=== PATIENT | female | born 1930 | race Caucasian/White ===

== ENCOUNTER 2017-03-22 16:05 | Inpatient (IN) | payer OTHER ==
[~2017-03-22] VITALS: Ht 167.6 cm; Wt 73.5 kg
--- NOTE | 2017-03-22 15:50 | NUR ---
Pt on unit Pt back on unit via wheelchair. No s/s of distress noted.
[~2017-03-22 16:05] MED LIST: ALBU2.5V2 IH; ALBU6.7H IH; ASPI-484 PO; ATOR40TA PO; CARV3.12 PO; CARV6.25 PO; CEPH-350 PO; CITA20TA5 PO; DILT180C PO; LEVO25TA4 PO; LISI10TA2 PO; MONT10TA6 PO
--- NOTE | 2017-03-22 16:35 | NUR ---
Pt on unit Pt arrived on unit via wheelchair. Oriented pt to room. Pt denies pain. Provided pt with fluids and snacks. Call light within reach. Family at bedside.
[2017-03-22 16:59] LABS: BASOPHIL % 0.3 % (0.0-0.2); EOSINOPHIL # 0.1 10^3/uL (0.0-0.2); EOSINOPHIL % 0.8 % (0.0-5.0); HEMATOCRIT 43.3 % (36.0-46.0); LYMPHOCYTES # 1.9 10^3/uL (1.0-4.8); LYMPHOCYTES % 18.6 % (24.0-44.0); MEAN CELL HGB 29.2 pg (26-34); MEAN CELL HGB CONCENTRATION 32.3 g/dL (33-37); MEAN CORP VOLUME 90.2 fL (78-100); MEAN PLATELET VOLUME 10.8 fL (7.8-11.0); MONOCYTES # 0.8 10^3/uL (0.3-0.8); MONOCYTES % 8.4 % (5.0-12.0); NEUTROPHIL # 7.2 10^3/uL (1.8-7.7); NEUTROPHILS % 71.7 % (41.0-85.0)
--- NOTE | 2017-03-22 17:15 | NUR ---
Pt off unit Pt transferred off unit via wheelchair to CAT scan. No s/s of distress noted.
[2017-03-22 17:26] LABS: ALANINE AMINOTRANSFERASE 10 U/L (12-78); ALKALINE PHOSPHATASE 142 U/L (50-136); ASPARTATE AMINO TRANSFERASE 12 U/L (0-35); CALCIUM 9.1 mg/dL (8.4-10.5); CARBON DIOXIDE 34.4 mmol/L (20.0-32); GLUCOSE 104 mg/dL (70-110)
[2017-03-22 18:01] VITALS: BP 124/66
--- NOTE | 2017-03-22 18:35 | NUR ---
REport received report from offgoing shift
[2017-03-22] MEDS ORDERED: ALPR0.254 PO (19:11)
--- NOTE | 2017-03-22 19:20 | DIREP ---
PROCEDURE:CT HEAD OR BRAIN W/O CONTRAST COMPARISON:[facility] CT, CR, SPINE CERVICAL 2 VIEW, 08/29/2013, 03:43 PM. [facility], CT, CT HEAD BRAIN W/O CONTRAST, 12/10/2016, 10:02 AM. INDICATIONS:head injury post fall TECHNIQUE:CT images were created without intravenous contrast. FINDINGS: VENTRICLES:The ventricles are normal in size and configuration. CEREBRUM:Atrophy and white matter disease. Findings within normal limits for age, unchanged from previous examination CEREBELLUM:Negative. BRAINSTEM:Negative. BASAL CISTERNS:Negative. HEMORRHAGE:No MASS LESION:Small densely calcified lesion arising from the right calvarium, in keeping meningioma. ACUTE INFARCT:No SKULL:Normal. SINUSES:Normal. OTHER:None CONCLUSION:Atrophy and white matter disease, unchanged from previous examination Dictated by: Cristobal Posey MD on 03/22/2017 at 07:15 PM
[2017-03-22] MEDS: NS 1000ML 1,000 ML IV SCH (20:07)
[2017-03-22] MEDS ORDERED: COREG ONE (20:34)
[2017-03-22] MEDS ORDERED: COREG PO SCH (21:00)
[2017-03-22 21:04] VITALS: BP 142/92
[2017-03-22] MEDS: VENTOLIN IH PRN (21:59)
--- NOTE | 2017-03-22 23:30 | NUR ---
confused pt tried to unhook herself from her iv by slowly removing her iv tape. Nurse reinfoced it and explain to her the importance of her iv fluid. Pt now is placed on nasal cannula at 2L due to low oxygen saturation. After several minutes with oxygen, pt O2sat went from 84 to 95%.
[2017-03-23] VITALS: BP 148/80
--- NOTE | 2017-03-23 02:40 | NUR ---
unccoperative pt removed all pads of telemetry and oxygen supply via nasal cannula. Nurse tried to explain to her the importance of telemetry and oxygen for her but she verbalized she does not want it and the nurse can have it. Informed charge nurse about it.
--- NOTE | 2017-03-23 02:56 | NUR ---
iv removed pt removed her iv when nurse rechecked her this time. Pt. asleep and no s/sx of any distress.
--- NOTE | 2017-03-23 03:25 | NUR ---
pt awake pt on side of the bed. Nurse decided to stay with her at this time to prevent accidental fall. Pt. is confused and uncooperative. She refused reinsertion of iv. Pt refused to lay back to her bed.
[2017-03-23 04:00] VITALS: BP 136/54
[2017-03-23] MEDS: SYNTHROID PO SCH (05:49)
--- NOTE | 2017-03-23 06:00 | NUR ---
iv reinserted finally pt agreed to have the iv reinserted. Placed back her telemetry and oxygen.
--- NOTE | 2017-03-23 06:45 | NUR ---
Report Received report and assumed care of pt
--- NOTE | 2017-03-23 06:59 | NUR ---
report report given to o/c shift
[2017-03-23] MEDS: NS 1000ML 1,000 ML IV SCH ×2 (07:24→20:09)
[2017-03-23 08:09] VITALS: BP 144/97
[2017-03-23] MEDS: ZESTRIL PO SCH (08:11)
[2017-03-23] MEDS: LIPITOR PO SCH (08:11)
[2017-03-23] MEDS: SINGULAIR PO SCH (08:11)
[2017-03-23] MEDS: CELEXA PO SCH (08:11)
[2017-03-23] MEDS: PROTONIX PO SCH (08:11)
[2017-03-23] MEDS: COREG PO SCH ×2 (08:12→20:09)
--- NOTE | 2017-03-23 08:18 | NUR ---
DISCHARGE PLANNING: PT LIVES HOME WITH HER DAUGHTER AND SON IN [place]. PT HAS ALL DME IN PLACE WHICH CONSIST OF A HOSPITAL BED, WALKER, CANE. PT HAD HOME O2 IN PLACE BUT DAUGHTER STATED THEY HAVE A TANK ON STAND BY BUT SHE DOES NOT USE IT DAILY. PT IS ON [facility]. [facility] NOTIFIED OF ADMISSION AND STATED SINCE IT IS UNRELATED TO HER DIAGNOSIS THEY WILL RESUME SERVICES UPON DISCHARGE. NO FURTHER NEEDS NOTED OR IDENTIFIED AT THIS TIME. PT SAFETY HANDOUT ADDRESSED, NO QUESTIONS ASKED, UNDERSTANDING VERBALIZED. SS TO CONTINUE TO FOLLOW AND MONITOR DISCHARGE PLANNING NEEDS.
[2017-03-23] MEDS: VENTOLIN IH PRN (08:44)
[2017-03-23] MEDS ORDERED: CARDIZEM CD PO SCH (09:00)
[2017-03-23 12:29] VITALS: BP 124/73
--- NOTE | 2017-03-23 14:01 | PRM.PN ---
Subjective Subjective Subjective this 86-year-old lady with A. fib and dementia was admitted status post head injury with fall and altered mental status. She still in A. fib, rate is controlled CT scan of the brain showed atrophy without acute bleed conservative plan of management, correct electrolytes. IV fluids. Discharge planning Patient History: Alzheimer's disease 32 MOTHER 33 FATHER VTE VTE Risk Total Score: >5 VTE Risk Score VTE Risk: Score 0-1 = Low Risk (Aggressive mobilization; early ambulation; no VTE prophylaxis required) Score 2: Moderate Risk (Intermittent/Pneumatic Compression Device OR Lovenox/Heparin/Coumadin) Score 3-4: High Risk (Intermittent/Pneumatic Compression Device AND Lovenox/Heparin/Coumadin) Score > or =5: Highest Risk (Intermittent/Pneumatic Compression Device AND Lovenox/Heparin/Coumadin) Review of Systems Allergies: Coded Allergies: No Known Allergies (Unverified , 12/04/16) Scheduled Albuterol Sulfate (Proventil Hfa), 1 PUFF IH BID, (Reported) Alprazolam (Alprazolam), 1 TAB PO PRN, (Reported) Aspirin (Aspir 81), 1 TAB PO DAILY, (Reported) Atorvastatin 40MG (Lipitor 40MG), 1 TAB PO DAILY, (Reported) Carvedilol 6.25MG (Coreg 6.25MG), 3.125 MG PO BID, (Reported) Cephalexin (Keflex), 1 CAP PO BID, (Reported) Citalopram Hydrobromide (Citalopram Hbr), 1 TAB PO DAILY, (Reported) Diltiazem Hcl (Diltiazem 24HR Er), 1 CAP PO DAILY, (Reported) Levothyroxine Sodium (Levothyroxine Sodium), 1 TAB PO DAILY, (Reported) Lisinopril (Lisinopril), 1 TAB PO DAILY, (Reported) Montelukast Sodium (Singulair), 1 TAB PO DAILY, (Reported) Scheduled PRN Albuterol Sulfate (Albuterol Sulfate), 2.5 MG IH RTQ4 PRN for WHEEZING Objective Vitals and I/O Vital Sign - Last 24 Hours 03/22/17 03/22/17 03/22/17 03/22/17 18:01 18:09 20:50 21:04 Temp 97.9 98.3 Pulse 102 113 113 Resp 18 21 B/P (MAP) 124/66 (85) 142/92 142/92 (109) Pulse Ox 95 90 O2 Delivery Room Air Room Air Room Air 03/22/17 03/22/17 03/23/17 03/23/17 22:01 23:38 00:00 04:00 Temp 99.7 98.4 Pulse 98 108 114 Resp 16 20 18 B/P (MAP) 148/80 (102) 136/54 (81) Pulse Ox 91 95 91 O2 Delivery Room Air Nasal Canula Nasal Canula 03/23/17 03/23/17 03/23/17 03/23/17 07:24 08:09 08:11 08:12 Temp 97.9 Pulse 102 102 Resp 18 B/P (MAP) 144/97 (113) 144/97 144/97 Pulse Ox 96 O2 Delivery Room Air Nasal [place] 03/23/17 03/23/17 03/23/17 03/23/17 08:12 08:46 08:51 12:29 Temp 98.3 Pulse 102 89 88 84 Resp 16 18 18 B/P (MAP) 144/97 124/73 (90) Pulse Ox 91 91 91 O2 Delivery Nasal [place]ula Intake and Output 03/22/17 03/22/17 03/23/17 15:00 23:00 07:00 Intake Total 420 ml Output Total 300 ml 300 ml Balance 120 ml -300 ml General: Alert ( she is more alert and oriented today.), Oriented X3 HEENT: Atraumatic, PERRLA Neck: Supple, No JVD Lungs: Clear to auscultation Heart: Normal S1, Normal S2, Other ( Irregular rhythm with A. fib) Abdomen: Normal bowel sounds Extremities: No clubbing Medication Reconciliation Scheduled Albuterol Sulfate (Proventil Hfa), 1 PUFF IH BID, (Reported) Alprazolam (Alprazolam), 1 TAB PO PRN, (Reported) Aspirin (Aspir 81), 1 TAB PO DAILY, (Reported) Atorvastatin 40MG (Lipitor 40MG), 1 TAB PO DAILY, (Reported) Carvedilol 6.25MG (Coreg 6.25MG), 3.125 MG PO BID, (Reported) Cephalexin (Keflex), 1 CAP PO BID, (Reported) Citalopram Hydrobromide (Citalopram Hbr), 1 TAB PO DAILY, (Reported) Diltiazem Hcl (Diltiazem 24HR Er), 1 CAP PO DAILY, (Reported) Levothyroxine Sodium (Levothyroxine Sodium), 1 TAB PO DAILY, (Reported) Lisinopril (Lisinopril), 1 TAB PO DAILY, (Reported) Montelukast Sodium (Singulair), 1 TAB PO DAILY, (Reported) Scheduled PRN Albuterol Sulfate (Albuterol Sulfate), 2.5 MG IH RTQ4 PRN for WHEEZING Assessment/Plan Assessment/Plan Assessment/Plan - A. fib -fall with head injury, brain concussion - no intracranial hemorrhage or stroke - hypertension, controlled -dementia, baseline -hypokalemia, potassium is given Problems: Patient History: Alzheimer's disease 32 MOTHER 33 FATHER NERI ESCOBAR MD Mar 23, 2017 14:01
[2017-03-23 17:46] VITALS: BP 118/73
--- NOTE | 2017-03-23 18:30 | NUR ---
report recieved report from Millicent CHRISTOPHER took over care
--- NOTE | 2017-03-23 19:20 | NUR ---
assessment kody in bed, patient states that she does not want to eat any of her supper, patient was offered sliced strawberries whick she ate, patient states no pain at this time. kody also states that she would like to get up and wheel arouns, kody was assisted in to chair and pushed down the nicole twice. patient back in room no other needs stated at this time,
[2017-03-23] MEDS ORDERED: KLOR-CON 10 PO ONE (19:46)
[2017-03-23 20:03] VITALS: BP 129/77
[2017-03-23] MEDS: KLOR-CON 10 PO SCH (20:09)
[2017-03-23] MEDS ORDERED: AMBIEN ONE (21:57)
[2017-03-23] MEDS ORDERED: ATIVAN PO STA (22:15)
--- NOTE | 2017-03-23 22:17 | NUR ---
Called [facility] nurse ordered 0.5 of ativan to help patient relax and fall aslepp
[2017-03-24 00:09] VITALS: BP 154/95
[2017-03-24 04:23] VITALS: BP 159/78
[2017-03-24] MEDS: SYNTHROID PO SCH (05:17)
[2017-03-24 05:48] LABS: BASOPHIL % 0.2 % (0.0-0.2); EOSINOPHIL # 0.1 10^3/uL (0.0-0.2); EOSINOPHIL % 1.3 % (0.0-5.0); HEMATOCRIT 40.8 % (36.0-46.0); HEMOGLOBIN 13.2 g/dL (12.0-15.0); LYMPHOCYTES # 1.3 10^3/uL (1.0-4.8); LYMPHOCYTES % 15.9 % (24.0-44.0); MEAN CELL HGB 28.8 pg (26-34); MEAN CELL HGB CONCENTRATION 32.4 g/dL (33-37); MEAN CORP VOLUME 89.1 fL (78-100); MEAN PLATELET VOLUME 11.6 fL (7.8-11.0); MONOCYTES % 11.9 % (5.0-12.0); NEUTROPHIL # 5.9 10^3/uL (1.8-7.7); NEUTROPHILS % 70.3 % (41.0-85.0); RED CELL DISTRIBUTION WIDTH 14.8 % (11.5-14.5); WHITE BLOOD CELL 8.4 10^3/uL (4.5-11.0)
[2017-03-24 06:05] LABS: CALCIUM 9.1 mg/dL (8.4-10.5); CARBON DIOXIDE 32.9 mmol/L (20.0-32)
--- NOTE | 2017-03-24 06:35 | NUR ---
Report Received report and assumed care of pt
[2017-03-24] MEDS ORDERED: CARDIZEM CD PO SCH (09:00)
[2017-03-24] MEDS: KLOR-CON 10 PO SCH (09:18)
[2017-03-24] MEDS: ZESTRIL PO SCH (09:18)
[2017-03-24] MEDS: LIPITOR PO SCH (09:18)
[2017-03-24] MEDS: PROTONIX PO SCH (09:19)
[2017-03-24] MEDS: COREG PO SCH (09:19)
[2017-03-24] MEDS: SINGULAIR PO SCH (09:19)
[2017-03-24] MEDS: CELEXA PO SCH (09:19)
[2017-03-24 09:28] VITALS: BP 119/73
--- NOTE | 2017-03-24 09:30 | NUR ---
Discharge Discharge instructions given to pt. Educated pt daughter importance of follow up appt with Dr. Santana. Daughter able to verbalize understanding. Pt waiting in room with daughter for ride. Pt denies pain or needs at this time. call light within reach.
--- NOTE | 2017-03-24 10:03 | NUR ---
[facility] CM NOTIFIED [facility] AND SPOKE TO MITA CHRISTOPHER REGARDING PATIENTS DISCHARGE FOR TODAY. MITA STATED THAT [facility] WILL FOLLOW UP WITH PATIENT TOMORROW 03/25/17. NO FURTHER CM OR DISCHARGE NEEDS KNOWN @ THIS TIME.
--- NOTE | 2017-03-24 10:20 | NUR ---
Pt off unit Pt transferred off unit via wheelchair to personal vehicle. No s/s of distress noted.
--- NOTE | 2017-03-25 12:40 | PRM.DC ---
Discharge Summary Date of Arrival on Unit: Mar 22, 2017 Reason for Visit: fall and altered mental status Additional Comments 86-year-old lady with A. fib, dementia, hypertension. Has been on treatment for rate control for A. fib, not on oral anticoagulation due to risk of bleed. Sustained a fall the night prior to admission with head injury specially to the back of the head. Since then patient family reported decrease in cognition with weakness and disorientation. The patient was admitted for evaluation, CT of the brain was unremarkable for any acute infarct or bleed. She received IV fluids, coxj-nt-plvyy abnormalities were corrected. Noted to be in A. fib, the rate was controlled. She was diagnosed with brain concussion without bleed, improved with observation and hydration. She was back to normal mental status as according to the family. Discharge planning was discussed in details. Patient lives with her daughter Patient History: Alzheimer's disease 32 MOTHER 33 FATHER History Present Illness: General: Alert, Oriented X3 HEENT: Atraumatic, PERRLA Neck: Supple, No JVD Lungs: Clear to auscultation Heart: Regular rate Abdomen: Normal bowel sounds Extremities: No clubbing Skin: No rashes Scheduled Albuterol Sulfate (Proventil Hfa), 1 PUFF IH BID, (Reported) Alprazolam (Alprazolam), 1 TAB PO PRN, (Reported) Aspirin (Aspir 81), 1 TAB PO DAILY, (Reported) Atorvastatin 40MG (Lipitor 40MG), 1 TAB PO DAILY, (Reported) Carvedilol 6.25MG (Coreg 6.25MG), 3.125 MG PO BID, (Reported) Cephalexin (Keflex), 1 CAP PO BID, (Reported) Citalopram Hydrobromide (Citalopram Hbr), 1 TAB PO DAILY, (Reported) Diltiazem Hcl (Diltiazem 24HR Er), 1 CAP PO DAILY, (Reported) Levothyroxine Sodium (Levothyroxine Sodium), 1 TAB PO DAILY, (Reported) Lisinopril (Lisinopril), 1 TAB PO DAILY, (Reported) Montelukast Sodium (Singulair), 1 TAB PO DAILY, (Reported) Scheduled PRN Albuterol Sulfate (Albuterol Sulfate), 2.5 MG IH RTQ4 PRN for WHEEZING Course Blood Pressure Systolic: 119 Blood Pressure Diastolic: 73 Blood Pressure Mean: 88 Plan Assessment - chronic A. fib - fall and head injury - brain concussion syndrome - dementia, baseline - hypokalemia - hypertension Discharge Disposition: Stable Plan - continue home medications - avoid oral anticoagulation other than aspirin to minimize chance of bleed - home care instructions related to ambulation and prevention of falls - continue A. fib therapy - outpatient follow-up NERI ESCOBAR MD Mar 25, 2017 12:40
== END 2017-03-24 10:24 | disposition hospice, home (50) | DRG 90 ==
LOC: MS 16:05
PROVIDERS: ADMIT Internal Medicine; ATTEND Internal Medicine
DX: S06.0X9A Concussion with loss of consciousness of unspecified duration, initial encounter (principal); W19.XXXA Unspecified fall, initial encounter; I10 Essential (primary) hypertension; F03.90 Unspecified dementia, unspecified severity, without behavioral disturbance, psychotic disturbance, mood disturbance, and anxiety; E87.6 Hypokalemia; I48.2 Chronic atrial fibrillation; Y93.89 Activity, other specified; Y92.89 Other specified places as the place of occurrence of the external cause; Y99.8 Other external cause status
CPT/HCPCS: 36415; 70450; 80048; 80053; 82550; 84484; 85025; 93005; 94640; J3480; J3490; J7030; J7613

== ENCOUNTER 2017-04-30 11:39 | Inpatient (IN) | payer MEDICARE, OTHER ==
[~2017-04-30] VITALS: Ht 162.6 cm; Wt 69.9 kg
[~2017-04-30 11:39] MED LIST changes: +ALPR0.254 PO
--- NOTE | 2017-04-30 12:00 | NUR ---
LACERATION REPAIR SCALP LACERATION CLEANSED WITH BETADINE AND IRRAGATED WITH NS. DR MARAVILLA AT BEDSIDE REPAIRING LACERATION WITH YARA. 5 YARA PLACED. BLEEDING CONTROLLED. 4X4 DRESSING APPLIED AND SECURED WITH COBAN. PT TOLERATED WELL.
--- NOTE | 2017-04-30 12:10 | ER.PDOC ---
General Chief Complaint: Head Injury Stated Complaint: LACERATIONS Time seen by MD: 11:55 Source: patient, family, EMS Exam Limitations: clinical condition History of Present Illness Initial Comments Pt fell at 3:30 AM and injured head on mid occipital region, but, she was not brought to ER at that time, then the hospice nurse went to the house and noticed a laceration and asked that the patient be transferred here, She apparently did not lose consciousness, but, seem confused and more lethargic than usual Occurred: this evening Where: home Severity: moderate Location: occipital Method of Injury: fell Associated symptoms: Dazed Allergies: Coded Allergies: No Known Allergies (Unverified , 12/04/16) Home Meds Active Scripts Albuterol Sulfate (ALBUTEROL SULFATE) 2.5 Mg/3 Ml Vial.neb, 2.5 MG IH RTQ4 Y for WHEEZING, #30 AMPULE Prov:MELISA ABARCA MD 12/08/16 Reported Medications Alprazolam (ALPRAZOLAM) 0.25 Mg Tablet, 1 TAB PO PRN, #90 TAB 03/22/17 Cephalexin (KEFLEX) 500 Mg Capsule, 1 CAP PO BID, #10 CAP 12/07/16 Montelukast Sodium (SINGULAIR) 10 Mg Tablet, 1 TAB PO DAILY, #90 TAB 4 Refills 12/07/16 Albuterol Sulfate (PROVENTIL HFA) 6.7 Gm Hfa.aer.ad, 1 PUFF IH BID, #1 INHALER 4 Refills 12/07/16 Carvedilol 6.25MG (COREG 6.25MG) 6.25 Mg Tablet, 3.125 MG PO BID, #60 TAB 4 Refills 12/07/16 Aspirin (ASPIR 81) 81 Mg Tablet.dr, 1 TAB PO DAILY, #30 TAB 5 Refills 12/04/16 Atorvastatin 40MG (LIPITOR 40MG) 40 Mg Tablet, 1 TAB PO DAILY, #30 TAB 5 Refills 12/04/16 Diltiazem Hcl (DILTIAZEM 24HR ER) 180 Mg Cap.er.24h, 1 CAP PO DAILY, #30 CAP 5 Refills 12/04/16 Citalopram Hydrobromide (CITALOPRAM HBR) 20 Mg Tablet, 1 TAB PO DAILY, #30 TAB 5 Refills 12/04/16 Levothyroxine Sodium (LEVOTHYROXINE SODIUM) 25 Mcg Tablet, 1 TAB PO DAILY, #30 TAB 5 Refills 12/04/16 Lisinopril (LISINOPRIL) 10 Mg Tablet, 1 TAB PO DAILY, #30 TAB 5 Refills 12/04/16 Past Medical History Medical History: COPD Surgical History: appendectomy, cholecystectomy, hysterectomy, knee, stent Social History Smoking: cigarettes, less than 1 pack/day Alcohol Use: none Drug Use: none Review of Systems Constitutional: see HPI Eyes: see HPI Ears, Nose, Mouth, Throat: see HPI Respiratory: see HPI Cardiovascular: see HPI Gastrointestinal: see HPI Genitourinary: see HPI Musculoskeletal: see HPI Skin: see HPI Psychiatric/Neurological: see HPI Endocrine: see HPI Hematologic/Lymphatic: see HPI Physical Exam General Appearance: Alert, No Apparent Distress, WD/WN Head: Active Bleeding, Lacerations (laceration 4 cm on occipital area), Other Eye: PERRL, EOMI, No nystagmus ENT: Nml external inspection, Pharynx nml Neck: non-tender, painless ROM, trachea midline Cardiovascular/Respiratory: Regular Rate, Rhythm, No M/R/G, Normal Peripheral Pulses, No JVD, Normal Breath Sounds, No Respiratory Distress, Rhonchi, Wheezing Gastrointestinal: Normal Bowel Sounds, No Organomegaly, No Pulsatile Mass, Non Tender, Soft Back: Normal Inspection, No CVA Tenderness, No Vertebral Tenderness Extremities: Normal Range of Motion, Non-Tender, Normal Inspection, No Pedal Edema, No Calf Tenderness, Normal Capillary Refill NEURO/PSYCH: Alert, Cooperative, Interactive, Mood/affect nml, Confused Cranial Nerves: Other (unable to test, non focal) Motor/Sensory: No Motor Deficit, No Sensory Deficit, No Pronator Drift, Negative Babinski's Sign Gurdeep Coma Score Best Eye Response: (4) Open Spontaneously Best Verbal Response: (5) Oriented Best Motor Response: (6) Obeys Commands Laceration/Wound Repair Laceration/Wound Repair : Wound Location: Occipital area Wound Length (cm): 4 Wound cleaned: betadine Distal NVT: neuro intact, vasc intact Wound's Depth, Shape: superficial, linear, subcutaneous Wound Explored: clean Tendon Intact: Yes Wound Debrided: minimal Wound Repaired With: arthur Number of Sutures: 5 Results/Orders Results/Orders Laboratory Tests Test 04/30/17 12:10 04/30/17 12:23 04/30/17 12:30 White Blood Count 6.4 10^3/uL (4.5-11.0) Red Blood Count 4.74 10^6/uL (4.00-5.20) Hemoglobin 13.7 g/dL (12.0-15.0) Hematocrit 42.3 % (36.0-46.0) Mean Corpuscular Volume 89.2 fL (78-100) Mean Corpuscular Hemoglobin 28.9 pg (26-34) Mean Corpuscular Hemoglobin Concent 32.4 g/dL (33-37) Red Cell Distribution Width 14.6 % (11.5-14.5) Platelet Count 185 10^3/uL (150-400) Mean Platelet Volume 10.6 fL (7.8-11.0) Neutrophils (%) (Auto) 59.9 % (41.0-85.0) Lymphocytes (%) (Auto) 28.6 % (24.0-44.0) Monocytes (%) (Auto) 9.4 % (5.0-12.0) Neutrophils # (Auto) 3.8 10^3/uL (1.8-7.7) Lymphocytes # (Auto) 1.8 10^3/uL (1.0-4.8) Monocytes # (Auto) 0.6 10^3/uL (0.3-0.8) Absolute Immature Granulocyte (auto 0.02 10^3 u/L (0-2) Eosinophils % 1.6 % (0.0-5.0) Basophils % 0.2 % (0.0-0.2) Basophils # 0.0 10^3/uL (0.0-0.1) Eosinophil Count 0.1 10^3/uL (0.0-0.2) Percent Immature Gran (Cell Imm) 0.30 % (0.00-0.50) Sodium Level 142 mmol/L (132-145) Potassium Level 3.4 mmol/L (3.6-5.2) Chloride Level 104.0 mmol/L (96-109) Carbon Dioxide Level 34.7 mmol/L (20.0-32) Anion Gap 6.7 Blood Urea Nitrogen 8 mg/dL (7-18) Creatinine 0.68 mg/dL (0.59-1.40) Estimated GFR () 98.8 BUN/Creatinine Ratio 11.0 Glucose Level 93 mg/dL (70-110) Calcium Level 9.3 mg/dL (8.4-10.5) Total Bilirubin 0.7 mg/dL (0.2-1.0) Aspartate Amino Transf (AST/SGOT) 14 U/L (0-35) Alanine Aminotransferase (ALT/SGPT) 15 U/L (12-78) Alkaline Phosphatase 129 U/L (50-136) Total Protein 6.8 g/dL (6.4-8.2) Albumin 3.3 g/dL (3.4-5.0) Globulin 3.5 Urine Collection Type Unknown Urine Color Yellow (YELLOW) Urine Appearance Slightly cloudy (CLEAR) Urine Bilirubin Negative MG/DL (NEGATIVE) Urine Ketones Negative (NEGATIVE) Urine Specific [place] 1.010 (1.005-1.035) Urine pH 8 (5.0-6.0) Urine Protein Negative (NEGATIVE) Urine Urobilinogen Normal (NEGATIVE) Urine Nitrate Negative (NEGATIVE) Urine Leukocyte Esterase 25 /ul trace (NEGATIVE) Urine Blood Negative (NEGATIVE) Urine RBC 0-2 RBC/HPF (NONE SEEN) Urine WBC 0-2 WBC/HPF (0-2) Urine Squamous Epithelial Cells Few #/HPF (FEW) Urine Bacteria Few (NONE SEEN) Urine Glucose Normal (NEGATIVE) Departure Time of Disposition: 13:48 Disposition: 02 XFER SHT-TRM HOSP Impression: Primary Impression: Subdural hemorrhage Condition: Critical Referrals: JAVIER RUSSELL MD (PCP) PRIMARY CARE PROVIDER SERAFIN SANCHEZ MD Apr 30, 2017 12:10
--- NOTE | 2017-04-30 12:17 | NUR ---
LAB TRUCK DRIVING AT BEDSIDE DRAWING BLOOD
--- NOTE | 2017-04-30 12:20 | NUR ---
RAD TABLE SAW OPERATOR AT BEDSIDE FOR PORTABLE CXR
[2017-04-30 12:23] LABS: BASOPHIL % 0.2 % (0.0-0.2); EOSINOPHIL # 0.1 10^3/uL (0.0-0.2); EOSINOPHIL % 1.6 % (0.0-5.0); HEMATOCRIT 42.3 % (36.0-46.0); HEMOGLOBIN 13.7 g/dL (12.0-15.0); LYMPHOCYTES # 1.8 10^3/uL (1.0-4.8); LYMPHOCYTES % 28.6 % (24.0-44.0); MEAN CELL HGB 28.9 pg (26-34); MEAN CELL HGB CONCENTRATION 32.4 g/dL (33-37); MEAN CORP VOLUME 89.2 fL (78-100); MEAN PLATELET VOLUME 10.6 fL (7.8-11.0); MONOCYTES # 0.6 10^3/uL (0.3-0.8); MONOCYTES % 9.4 % (5.0-12.0); NEUTROPHIL # 3.8 10^3/uL (1.8-7.7); NEUTROPHILS % 59.9 % (41.0-85.0); RED CELL DISTRIBUTION WIDTH 14.6 % (11.5-14.5); WHITE BLOOD CELL 6.4 10^3/uL (4.5-11.0)
--- NOTE | 2017-04-30 12:25 | NUR ---
UA PT ASSISTED TO RESTROOM VIA WC TO OBTAIN UA.
--- NOTE | 2017-04-30 12:30 | NUR ---
RAD PT TO RAD FOR CT HEAD
[2017-04-30 12:38] LABS: BILIRUBIN,URINE NEGATIVE (NEGATIVE); UROBILINOGEN,URINE NORMAL (NEGATIVE)
[2017-04-30 12:38] LABS: CALCIUM 9.3 mg/dL (8.4-10.5); CARBON DIOXIDE 34.7 mmol/L (20.0-32)
--- NOTE | 2017-04-30 12:40 | NUR ---
RAD PT BACK FROM RAD
[2017-04-30 12:50] LABS: APPEARANCE,URINE SLIGHTLY CLOUDY (CLEAR); UA COLOR YELLOW (YELLOW)
[2017-04-30 13:01] LABS: WBC,URINE 0-2 WBC/HPF (0-2)
--- NOTE | 2017-04-30 13:25 | DIREP ---
PROCEDURE:CT HEAD OR BRAIN W/O CONTRAST COMPARISON:[facility], CT, CT HEAD BRAIN W/O CONTRAST, 03/22/2017, 05:22 PM. INDICATIONS:Head injury, Fall TECHNIQUE:CT images were created without intravenous contrast. FINDINGS: VENTRICLES:The ventricles are normal in size and configuration. CEREBRUM:Atrophy and white matter disease. Findings within normal limits for age, unchanged from previous examination CEREBELLUM:Negative. BRAINSTEM:Negative. BASAL CISTERNS:Negative. HEMORRHAGE:No MASS LESION:Small densely calcified lesion arising from the right calvarium, in keeping meningioma. ACUTE INFARCT:No SKULL:Small 5 mm x 8 mm densely calcified meningioma associated with the right posterior frontal calvarium best seen on axial image 17 on series 2.-unchanged from March 22, 2017. SINUSES:Normal. OTHER:Soft tissue swelling and clips over the parietal scalp. CONCLUSION:1. Acute subdural hematoma in the interhemispheric fissure along the right side of the falx and also adjacent to the right side of the tentorium and have appeared since the previous study dated March 22, 2017. No definite mass effect is identified. 2. Soft tissue swelling and clips over the parietal scalp posteriorly. 3. Atrophy, chronic deep white matter abnormalities and small right frontal meningioma are unchanged from March 22, 2017. Dictated by: Nura Ferris M.D. on 04/30/2017 at 01:16 PM
--- NOTE | 2017-04-30 13:36 | NUR ---
[facility] DR SANCHEZ ON PHONE WITH [facility] TRANSFER LINE
--- NOTE | 2017-04-30 13:38 | NUR ---
DR IVAN SANCHEZ ON PHONE WITH DR LOVE AT [facility]. PER DR LOVE, HE WILL BE CALLING DR RIDDLE TO SEE IF PT CAN BE A DIRECT ADMIT. IF DR RIDDLE WILL NOT MAKE HER A DIRECT ADMIT THEN DR LOVE WILL ACCEPT PT IN [facility] ER.
--- NOTE | 2017-04-30 13:45 | NUR ---
DR VENKATESH RIDDLE ACCEPTED PT A DIRECT ADMIT
--- NOTE | 2017-04-30 13:49 | NUR ---
DR TEVIN ABARCA HAS BEEN NOTIFIED OF TRANSFER
--- NOTE | 2017-04-30 13:55 | NUR ---
[facility] NURSE INFORMED STAFF THAT DAUGHTER WHO HAS POA DECIDED NOT TO TRANSFER TO [facility].
--- NOTE | 2017-04-30 14:14 | DIREP ---
PROCEDURE:CHEST 1 VIEW COMPARISON:[facility], CR, XRAY CHEST SINGLE VW, 04/30/2017, 11:31 AM. INDICATIONS:Ronchii, wheezing, FALL 04-29-2017 FINDINGS: LUNGS/PLEURA:Chronic appearing changes in both lungs. No effusions. VASCULATURE:Normal. Unremarkable pulmonary vasculature. CARDIAC:Mild cardiomegaly. MEDIASTINUM:Normal. No visible mass or adenopathy. BONES:Normal. No fracture or visible bony lesion. OTHER:Negative. CONCLUSION:Cardiomegaly and chronic appearing changes in both lungs with no acute infiltrates. Dictated by: Nura Ferris M.D. on 04/30/2017 at 02:12 PM
--- NOTE | 2017-04-30 14:17 | NUR ---
POA WAITING ON THE POA TO MAKE FINAL DECISION ON PT CARE
--- NOTE | 2017-04-30 14:55 | NUR ---
KEENAN SANCHEZ AT BEDSIDE SPEAKING WITH KEENAN ABOUT POC. POA WISHING TO HAVE PT A DNR AND PLACED IN ALF. FAMILY DISCUSSING POC.
--- NOTE | 2017-04-30 15:04 | NUR ---
DR VENKATESH SANCHEZ ON PHONE WITH DR RIDDLE ABOUT PT UPDATE IN REGARDS TO MAKING PT A DNR
--- NOTE | 2017-04-30 15:05 | NUR ---
[facility] FAMILY DECICED TO TRANSFER TO [facility] AND WISH TO HAVE PT A DNR. DR SANCHEZ ON PHONE WITH DR RIDDLE TO NOTIFY HIM OF DNR STATUS
--- NOTE | 2017-04-30 15:20 | NUR ---
[facility] BE[facility] NOTIFIED OF TRANSFER TO [facility]
--- NOTE | 2017-04-30 15:28 | NUR ---
ALICIA FOSTER HERE TO TRANSFER PT TO [facility]
--- NOTE | 2017-04-30 15:45 | NUR ---
[facility] CALLED ELOISE, [facility] TRANSFER, AND NOTIFIED THAT PT WILL BE ADMITTED HERE AND NOT TAKEN TO [facility]. PER ELOISE SHE WILL CALL DR RIDDLE AND NOTIFY OF STATUS
--- NOTE | 2017-04-30 15:57 | NUR ---
ADMIT PT TRANSFERRED TO [facility] ROOM 335 VIA BED IN STABLE CONDITION. BEDSIDE REPORT GIVEN TO DEVIN SEGAL TO ASSUME CARE
--- NOTE | 2017-04-30 16:16 | NUR ---
ARRIVAL PT ARRIVED VIA STRETCHER FROM ER AT THIS TIME. REPORT RECEIVED FROM [facility] AND ASSUMED CARE OF PT.
[2017-04-30] MEDS ORDERED: MORPHINE SULFATE PO PRN (17:00)
[2017-04-30] MEDS ORDERED: HALDOL PO PRN (17:00)
[2017-04-30] MEDS ORDERED: ATIVAN PO PRN (17:00)
[2017-04-30] MEDS ORDERED: NORCO 10-325 TABLET PO PRN (17:00)
[2017-04-30 17:34] VITALS: BP 163/112
[2017-04-30] MEDS: APRESOLINE IV PRN (18:00)
[2017-04-30] MEDS: NICOTINE 14MG PATCH TD SCH (18:00)
--- NOTE | 2017-04-30 18:45 | NUR ---
received report from 0630 shift
--- NOTE | 2017-04-30 20:00 | NUR ---
Pt pulled out iv, does not remember how to use call light
--- NOTE | 2017-04-30 20:35 | NUR ---
Pt moved to room 329, to be closer to nurses station. pt moved via bed, tolerated well, call light in reach, bed alarm activated
[2017-04-30] MEDS: DUONEB 0.5 MG-3 MG/3 ML SOLN IH SCH (20:38)
[2017-04-30] MEDS ORDERED: DUONEB 0.5 MG-3 MG/3 ML SOLN IH ONE (21:00)
[2017-04-30] MEDS: RESTORIL PO SCH (21:11)
[2017-04-30] MEDS: ATIVAN PO SCH (21:11)
[2017-04-30 21:18] VITALS: BP 141/75
[2017-05-01 00:19] VITALS: BP 154/88
[2017-05-01] MEDS ORDERED: VENTOLIN IH PRN (00:30)
--- NOTE | 2017-05-01 01:27 | NUR ---
Up to Br with assist x1, Pt is incontinent of urine, irma care per nursing, assist pt back to bed,
[2017-05-01] MEDS: DUONEB 0.5 MG-3 MG/3 ML SOLN IH SCH ×4 (02:55→21:23)
--- NOTE | 2017-05-01 03:30 | PRM.ACF1 ---
Admission Criteria Forms NEUROLOGY GRG Clinical Indications for Admission to Inpatient Care (Place ' X' for any and all applicable criteria): Hospital admission is needed for appropriate care of the patient because of 1 or more of the following: [ ]I. Encephalitis [ ]II. Severe DETECTIVE AND INTELLIGENCE ANALYST infections indicated by 1 or more of the following(1)(2)(3) : [ ]a) Intracranial abscess [ ]b) Spinal abscess or myelitis [ ]c) Tuberculous or other nonbacterial, nonviral DETECTIVE AND INTELLIGENCE ANALYST infection(8) [ ]III. Vasculitis and 1 or more of the following(14)(15): []a) Altered mental status that is severe or persistent or other acute neurologic change []b) Psychosis []c) Seizure [ ]IV. Status epilepticus or repetitive seizures not controlled with emergent treatment [A] (7)(8) [ ]V. Altered mental status that is severe or persistent [ ]. Transient alteration in consciousness with high-risk etiology; examples include (12)(13): [ ]a) Cardiovascular source [ ]b) Cataplexy [ ]VII. Cerebral aneurysm requiring ANY ONE of the following(14): [ ]a) IV antihypertensives or vasoactive agents [ ]b) Sedation and analgesia for suspected leak [ ]c) Need for external ventricular drainage and cerebral perfusion pressure monitoring [ ]d) Emergent evaluation to determine need for surgical clipping or endovascular coiling by interventional radiology. If surgery is required ( Also use Craniotomy, Supratentorial, for Surgery of Bleeding Intracranial Aneurysm (for bleeding aneurysm) or Craniotomy, Supratentorial (for nonbleeding aneurysm) as appropriate. [X ]VIII. New-onset severe neurologic symptom requiring inpatient care indicated by ANY ONE of the following: [ ]a) Aphasia(15) [ ]b) Weakness (grade 3 or less) [ ]c) Paralysis (eg, hemiplegia) [ ]d) Spasticity(16) [ ]e) Dystonia [ ]e) Ataxia(17) [ ]f) Amnesia(18) [ ]g) Involuntary movements(19) [ ]h) Vertigo [ ] Visual loss [ X]i) Other severe neurologic finding (eg, papilledema, mass effect on imaging, myoclonus not treatable at alternative level of care (eg, observation care) [ ]IX. Guillain-[place] syndrome(20) [ ]X. Myasthenia gravis crisis or inpatient monitoring need as indicated by 1 or more of the following(21): [ ]a) Intensive treatment (eg, course of plasmapheresis) with inadequate outpatient situation to monitor patients status [ ]b) Inadequate airway protection [ ]c) Respiratory insufficiency requiring intubation or inpatient. monitoring [ ]d) Progressive dysphagia with failure to thrive [ ]XI. Multiple sclerosis or other acute demyelinating disease requiring inpatient care as indicated by 1 or more of the following (22)(23): [ ]a) Acute severe deterioration requiring inpatient treatment (eg, IV steroids, plasmapheresis, close observation) [ ]b) Acute complication requiring inpatient care (eg, sepsis, severe decubitus, aspiration) [ ]XII.Parkinson disease requiring inpatient care (Also use Optimal Recovery Care Criteria or General Recovery Criteria as appropriate) indicated by 1 or more of the following(25): [ ]a) Infection (eg, aspiration pneumonia) not treatable at alternative level of care [ ]b Dehydration that is severe or persistent [ ]c) Life-threatening agitation or psychotic behavior not treatable on emergency, observation care, or alternative level (eg, residential) basis [ ]d) Severe medication withdrawal effects (eg, freezing, neuroleptic malignant syndrome) not responsive to emergency and observation care treatment ( as appropriate) [ ]e) Other severe manifestation not treatable at alternative level of care [ ]XII. Amyotrophic lateral sclerosis with inpatient care needs as indicated by ANY ONE of the following(26): [ ]a) Acute complications (eg, aspiration pneumonia, sepsis ) requiring inpatient care ( see other optimal Recovery Guideline as appropriate) [ ]b) Dehydration that is severe persistent AND artificial support desired [ ]c) Inadequate airway protection AND artificial support desired [ ]d) Severe ventilatory insufficiency AND artificial support desired [ ]XIII. Myasthenia gravis crisis or inpatient monitoring need as indicated by 1 or more of the following(21): [] a) Inadequate airway protection []b) Respiratory insufficiency requiring intubation or inpatient monitoring []c) Progressive dysphagia with failure to thrive []d) Intensive treatment (e.g., course of plasmapheresis) with inadequate outpatient situation to monitor patients status [ ]XIV. Multiple sclerosis or other acute demyelinating disease requiring inpatient care indicated by 1 or more of the following[C](36)(43)(44)(45)(46): []a) Acute severe deterioration requiring inpatient treatment (eg, IV steroids, plasmapheresis, close observation) []b) Acute complication requiring inpatient care (eg, sepsis, severe decubitus, aspiration) [ ]XV. Intracranial hypertension (e.g., pseudotumor cerebri) requiring inpatient care (e.g., acute visual loss, inadequate oral intake) (47)(48)(49) [ ]XVI. Parkinson disease requiring inpatient care (Also use Optimal Recovery Care Criteria or General Recovery Criteria as appropriate) indicated by 1 or more of the following(25): [] a) Infection (e.g., aspiration pneumonia) not treatable at alternative level of care []b) Volume depletion not responsive to emergency and observation care treatment (as appropriate) []c) Life-threatening agitation or psychotic behavior not treatable on emergency, observation care, or alternative level (e.g., residential) basis []d) Severe medication withdrawal effects (e.g., freezing, neuroleptic malignant syndrome) not responsive to emergency and observation care treatment (as appropriate) []e) Other severe manifestation not treatable at alternative level of care [ ]XVII. Amyotrophic lateral sclerosis with inpatient care needs as indicated by1 or more of the following(42): []a) Acute complications (eg, aspiration pneumonia, sepsis) requiring inpatient care (see other Optimal Recovery Guideline or General Recovery Guideline as appropriate) []b) Dehydration that is severe or persistent AND artificial support desired []c) Inadequate airway protection AND artificial support desired []d) Severe ventilatory insufficiency AND artificial support desired [ ]XVIII. Severe myopathy, neuropathy, or other neuromuscular disease indicated by 1 or more of the following(42)(52)(53)(54): []a ) New-onset severe diffuse weakness (eg, strength 3/5 or less) []b) Severe dysphagia []c) Dyspnea at rest or with minimal exertion (new) []d) Inadequate airway protection []e) Inadequate ventilation indicated by 1 or more of the following : i) Partial pressure of carbon dioxide greater than 44 mm Hg ( 5.9 kPa) (new) ii) Reduced peak expiratory flow rate (new) iii) Vital capacity less than 50% of predicted (less than 15 mL/kg) iv) Peak inspiratory force less negative than -30 cm H2O (- 2942 Pa) [ ]XVII.Complications of congenital or degenerative disease (eg, infection, seizures, dehydration, injury) not responsive to emergency and observation care treatment (as appropriate ) [C](16)(29)(30) [ ]XVIII.Suspected or confirmed nerve or muscle toxic injury, including ANY ONE of the following: [ ]a) Rhabdomyolysis(31) i) Acute renal failure ii) Dehydration that is severe or persistent iii) Altered mental status that is severe or persistent iv) Electrolyte abnormality that remains after emergency or observation level care ( as appropriate) [ ]b) Botulism(32) [ ]c) Other severe toxin-induced sign or symptom [ ]XIX. Neurologic trauma requiring inpatient treatment (medical) indicated by ANY ONE of the following(33)(34): [ ]a) Vital signs or neurologic signs more frequently than every 4 hours [ ]b) Hyperosmolar therapy [ ]c) Respiratory monitoring [ ]d) Intracranial pressure monitoring and treatment [ ]e) Stabilization and immobilization device placement (eg, braces, body jacket) [ ]f) Intubation & mechanical ventilation for airway protection or therapeutic hyperventilation [ ]g) Other treatment or monitoring needed that requires inpatient level of care [ ]XX.Complications of neurologic devices (eg, ventricular shunt, neurostimulator) requiring 1 or more of the following(35)(36): [ ]a) IV antibiotics with monitoring while awaiting culture results [ ]b) Monitoring for hydrocephalus [ ]XXI. Neurology condition symptom, or finding for which emergency and observation care have failed or are not considered appropriate. See General Criteria: Observation Care ISC, General Admission Criteria GRG, or Pediatric General Admission Criteria GRG guideline as appropriate. The original [facility] content created by [employer] has been revised. The portions of the content which have been revised are identified through the use of italic text or in bold, and [facility] has neither reviewed nor approved the modified material. All other unmodified content is copyright [facility] Please see references footnoted in the original [email or web address] edition 2016 Physician order is complete/pr: Yes Is [facility]/Tony's added/comple: YES ISELA CURIEL [facility] May 01, 2017 03:30
[2017-05-01] MEDS: APRESOLINE IV PRN (04:59)
[2017-05-01 05:25] VITALS: BP 148/100
--- NOTE | 2017-05-01 06:35 | NUR ---
Report Received report and assumed care of pt
--- NOTE | 2017-05-01 07:15 | NUR ---
status Pt trying to get out of bed. Pt unsteady on feet. pt educated on reason to stay in bed. Pt verbalized understanding. Reinforcement need. Call light within reach. Bed alarm on.
[2017-05-01] MEDS ORDERED: LIPITOR ONE (08:03)
[2017-05-01] MEDS ORDERED: COREG ONE (08:04)
[2017-05-01] MEDS: ATIVAN PO SCH ×2 (08:06→20:56)
[2017-05-01] MEDS: NICOTINE 14MG PATCH TD SCH (08:07)
[2017-05-01] MEDS: SINGULAIR PO SCH (08:07)
[2017-05-01] MEDS: CARDIZEM CD PO SCH (08:07)
[2017-05-01] MEDS: ZESTRIL PO SCH (08:07)
[2017-05-01] MEDS: CELEXA PO SCH (08:07)
[2017-05-01] MEDS: LIPITOR PO SCH (08:08)
[2017-05-01 08:23] VITALS: BP 148/72
[2017-05-01] MEDS ORDERED: COREG PO SCH (09:00)
[2017-05-01] MEDS: COREG PO SCH ×2 (09:00→20:56)
[2017-05-01] MEDS ORDERED: SYNTHROID PO SCH (09:00)
--- NOTE | 2017-05-01 11:06 | NUR ---
DISCHARGE PLANNING: PT LIVES HOME WITH HER DAUGHTER AND SON [place]. PT HAS ALL DME IN PLACE WHICH CONSIST OF A HOSPITAL BED, WALKER, CANE, AND HOME O2 IN PLACE. PT IS ON [facility] AND IS CURRENTLY IN GIP STATUS IN HOSPITAL. ROSITA FAN, RN, CENTER SALES AND SERVICE ASSOCIATE NOTIFIED OF PT'S ADMISSION, AND FAMILY'S REQUEST FOR PT'S SAFETY DIRECTOR PLACEMENT DUE TO THEM NOT BEING ABLE TO CARE FOR HER ANY LONGER. [facility] STATED THEY HAVE BEEN ACTIVELY WORKING WITH THIS FAMILY FOR MONTHS FOR PLACEMENT. [facility] HAS PAID FOR RESPITE MULTIPLE TIMES AT [facility], BUT FAMILY DID NOT WANT TO PRIVATE PAY WHILE PT WAS MEDICAID PENDING. [facility] STATED ASHWIN MARQUEZ WITH [facility] WOULD BE OUT LATER THIS AFTERNOON TO REEVALUATE PT FOR GIP SERVICES. [facility] STATED THEY WOULD RATHER EAT THE COST SINCE NO FACILITY WANTS TO TAKE PT MEDICAID PENDING AND PT'S FAMILY REFUSES TO PRIVATE PAY. CM/SS WILL CONTINUE TO FOLLOW, MONITOR AND ASSIST WITH ANY DISCHARGE PLANNING NEEDS PT MAY HAVE.
--- NOTE | 2017-05-01 11:45 | NUR ---
status Pt trying to get out of bed. Pt unsteady on feet. pt placed in wheelchair and brought to nurses station. Fluids and snacks provided to pt.
[2017-05-01 12:35] VITALS: BP 124/65
--- NOTE | 2017-05-01 13:24 | NUR ---
FOLLOW UP WITH FAMILY: SS FOLLOWED UP WITH PT'S DAUGHTER AND GRANDDAUGHTER REGARDING DISCHARGE PLANNING. AT THIS TIME PT'S FAMILY WOULD LIKE PT TO GO [facility] AND THEN THEY WOULD WORK WITH [facility] TO GET HER ON RESIDENTIAL MEDICAID SO THEY COULD TRANSITION HER NETWORK ASSOCIATE SINCE THEY ARE NO LONGER ABLE TO CARE FOR HER. SS LET PT'S FAMILY KNOW AT THIS TIME PT IS [facility] AND [facility] WAS TO COME OUT LATER THIS AFTERNOON AND RE-EVALUATE HER TO SEE IF SHE MET CRITERIA, IF NOT SHE WOULD BE DISCHARGED FROM [facility] AND ADMITTED SO SHE COULD SECURE HER THREE MIDNIGHTS TO GO SNF. PT'S FAMILY VERBALIZED UNDERSTANDING. CHOICE LETTER, PRESENTED, SIGNED AND PLACED INTO PT'S CHART FOR [facility]. PT WILL NEED A PT EVALUATION PER [employer] GUIDELINES BEFORE SS IS ABLE TO SEND REFERRAL OVER TO [facility]. SS NOTIFIED ANITA RN AT [facility] OF REFERRAL AND SHE STATED SOON WE GOT THE EVALUATION IN TO FAX IT OVER AND THEY WOULD START WORKING ON IT. SS TO CONTINUE TO FOLLOW.
[2017-05-01 19:55] VITALS: BP 119/77
[2017-05-01] MEDS: RESTORIL PO SCH (20:56)
[2017-05-02 00:38] VITALS: BP_SYST 121; BP_SYST 131; BP_DIAS 92
--- NOTE | 2017-05-02 01:13 | NUR ---
Status Patient resting with eyes closed in supine position. No s/s of distress noted. Call light within reach. Bed alarm on. Will continue to monitor
--- NOTE | 2017-05-02 02:59 | NUR ---
Incontinent Patient incontinent of urine. Brief changed. Assisted patient to bedside commode. 200 cc of strong light seema urine output. Dejah care provided. Assisted patient back to bed. Bed alarm on. Patient denies further needs at this time. Will continue to monitor. Call light within reach. Reinforcement needed.
[2017-05-02] MEDS: DUONEB 0.5 MG-3 MG/3 ML SOLN IH SCH ×4 (04:59→21:00)
[2017-05-02 05:17] VITALS: BP 141/89
[2017-05-02] MEDS: SYNTHROID PO SCH (06:45)
--- NOTE | 2017-05-02 08:25 | HPH ---
CHIEF COMPLAINT: Fall at home with a head laceration. HISTORY OF PRESENT ILLNESS: The patient is a pleasant 86-year-old woman with a past medical history significant for hypertension, coronary artery disease, COPD with continued tobacco abuse, hypothyroidism, who presented to the ER when she had a fall at home. Normally she is ambulatory. She has a walker, but she did fall and hit the back of her head. She had a laceration which was stapled in the Emergency Room. In the ER workup, she did have a subdural hematoma. A long discussion was held with family and decision makers. She is on interim hospice. They eventually decided that they wanted her code status DNR. They did not want surgical intervention. She initially accepted and enrolled, but patient's family decided to put her on the inpatient hospice here with possible placement in care home palliative care versus hospice. She does have significant fall risk. She is significantly hard of hearing, but otherwise no acute changes. She denied any pain at the time of exam other than the scalp pain and the laceration. PAST MEDICAL HISTORY: Includes COPD, tobacco abuse, hypertension, coronary artery disease, anxiety disorder, hypothyroidism. PAST SURGICAL HISTORY: She has had appendectomy, cholecystectomy, hysterectomy , knee surgery and PTCA with stents placed. ALLERGIES: No known drug allergies. HOME MEDICATIONS: List currently includes albuterol as needed, Xanax as needed , Singulair 10 mg daily, Coreg 3.125 mg b.i.d., aspirin 81 mg daily, Lipitor 40 mg daily, diltiazem 180 mg daily, citalopram 20 mg daily, levothyroxine 25 mcg daily, lisinopril 10 mg daily. SOCIAL HISTORY: Positive for continued tobacco use about a pack a day. No illicit drug use or alcohol use. Had lived at home. FAMILY HISTORY: Negative for early coronary artery disease or diabetes. REVIEW OF SYSTEMS: Difficult to obtain due to her hearing deficit and some probably baseline dementia, but denies any chest pain, shortness of breath or dyspnea on exertion. PULMONARY: No cough, sputum production or pleuritic chest pain. GASTROINTESTINAL: No nausea, vomiting, diarrhea or constipation. Otherwise negative 10-point review of systems except as in the HPI. PHYSICAL EXAMINATION: VITAL SIGNS: Upon arrival at the ER, height is 162.5 cm, weight 72.5 kg, temperature 97.7, pulse of 89, respiratory rate is 20, blood pressure 144/99. O2 saturation 99% on room air. GENERAL: She is alert, chronically ill-appearing lady. HEENT: Pupils equal, round and reactive to light. Sclera has been anicteric. Oropharynx is clear. Mucous membranes are moist. She has a scalp laceration in the subdural region that is stapled. No active bleeding. NECK: Supple. No lymphadenopathy. CARDIOVASCULAR: At the time of exam is tachycardic. Regular rhythm with mild systolic ejection murmur at the left sternal border. LUNGS: Clear bilaterally. No wheezing at the time of exam. ABDOMEN: Soft. Bowel sounds are present. Nontender to palpation. EXTREMITIES: No cyanosis, clubbing. She has trace lower extremity edema. NEUROLOGIC: At the time of exam, she is grossly nonfocal. LABORATORY DATA: CBC; white count 6.4, hemoglobin 13.7, platelets 185. Differentials 60% neutrophils, 28% lymphocytes, 9% monocytes. Sodium 142, potassium 3.4, chloride 104, CO2 is 35, BUN 8, creatinine 0.7. Glucose 93, calcium is 9.3. Total bilirubin 0.7, AST 14, ALT 15, alkaline phosphatase 129, total protein 6.8, albumin is 3.3. UA; pH is 8.0, specific gravity is 1.010. All other systems are negative. IMAGING STUDIES: Chest x-ray revealed some cardiomegaly and chronic lung changes with emphysema. 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 Also acute subdural hematoma in the inner hemispheric fissure more on the right side, but no identified mass effect. ASSESSMENT AND PLAN: The patient is an 86-year-old woman here with advanced chronic obstructive pulmonary edema, continued tobacco abuse with a fall with subdural hematoma and history of hypertension, coronary artery disease and hypothyroidism. 1. From a cardiovascular standpoint, continue all cardiovascular medications. We will titrate if her blood pressure is controlled in a reasonable range. She does have a subdural hematoma. She also has uncontrolled hypertension at the time of presentation. 2. PRN medications for pain or nausea, continue hospice medications per hospice. 3. Hospice is following with hospice orders. She is on general inpatient palliative care under hospice. 4. Code status, DNR. 5. Case management consult for placement. Time spent with the patient and family is 45 minutes. This plan was discussed with the patient 's family. The primary decision maker is daughter who does understand and concur. She is under palliative care inpatient per hospice. MD KLARISSA Galvan/SON/NICOLAS TD: 05/01/2017 02:50 MTDD
[2017-05-02] MEDS: ATIVAN PO SCH ×2 (08:54→21:00)
[2017-05-02] MEDS: COREG PO SCH ×2 (08:54→21:00)
[2017-05-02] MEDS: LIPITOR PO SCH (08:54)
[2017-05-02] MEDS: ZESTRIL PO SCH (08:54)
[2017-05-02] MEDS: NICOTINE 14MG PATCH TD SCH (08:55)
[2017-05-02] MEDS: CELEXA PO SCH (08:55)
[2017-05-02] MEDS: SINGULAIR PO SCH (08:55)
[2017-05-02] MEDS: CARDIZEM CD PO SCH (08:55)
[2017-05-02 09:59] VITALS: BP 155/100
[2017-05-02 11:17] VITALS: BP 149/99
[2017-05-02 16:00] VITALS: BP 133/81
[2017-05-02 20:00] VITALS: BP 163/90
[2017-05-02] MEDS ORDERED: DILANTIN PO STA (20:57)
[2017-05-02] MEDS ORDERED: ATIVAN IV STA (20:57)
[2017-05-02] MEDS ORDERED: ATIVAN ONE (20:57)
[2017-05-02] MEDS: RESTORIL PO SCH (21:00)
--- NOTE | 2017-05-02 21:00 | NUR ---
Pt found having a seizure at this time, shaking movements noted to all extremities. Pt verbalizing throughout seizure, incoherent words and phrases. Ativan 2mg IVP given at this time as per verbal order from Dr. Sanchez. Dr. Sanchez at bedside with patient. Patient placed in safe position throughout seizure as well. Ended within < 2 mins. Loading dose of Dilantin 500mg IV to be given via IV infusion over 1 hour BARBARA, per order from Dr. Sanchez.
[2017-05-02] MEDS ORDERED: NS 100ML 100 ML IV ONE ×2 (21:01→21:35)
--- NOTE | 2017-05-02 21:27 | NUR ---
PT TAKEN TO RADIOLOGY FOT CT SCAN
[2017-05-02] MEDS ORDERED: NS 250ML 250 ML IV ONE (21:41)
--- NOTE | 2017-05-02 21:45 | NUR ---
Pt back to room from CT, pt again noted to have short seizing episode, alert throughout. Non-verbal during episode. Suction set up and pt mouth suctioned to keep airway clear. Pt positioned for safety. Bedrails to be padded BARBARA and pt placed on Seizure precautions. Dilantin infusion started once episode was finished and pt was in safe condition. Episode lasted <1 min.
[2017-05-02] MEDS: DILANTIN IV SCH (22:00)
--- NOTE | 2017-05-02 22:01 | DIREP ---
PROCEDURE:CT HEAD WITHOUT CONTRAST TECHNIQUE:Axial cuts were obtained through the head, without intravenous contrast material. The images were viewed at brain and bone settings. COMPARISON:[facility], CT, CT HEAD BRAIN W/O CONTRAST, 04/30/2017, 12:31 PM. INDICATIONS:Seizure, stroke FINDINGS: VENTRICLES:There is mild generalized prominence of the ventricles, sulci, and cisterns, within normal range for age. CEREBRUM:There is moderate patchy low density in the periventricular white matter of both cerebral hemispheres. There is progression of the acute hemorrhage along the right side of the falx that now measures 1.6 cm in thickness when compared to the prior exam. There is layering of the subdural hemorrhage along the right tentorium. Small lacunar infarct in the left thalamus. CEREBELLUM:Mild volume loss. BRAINSTEM:Normal. SKULL:Normal. SINUSES:Normal. OTHER:Atherosclerotic calcifications of the carotid siphons are noted. CONCLUSION: 1. Slight interval progression and enlargement of subdural hemorrhage layering along the right falx and the right tentorium. 2. Moderate chronic white matter ischemic change. 3. Cerebral atherosclerosis. Dictated by: Rafael Ochoa MD on 05/02/2017 at 09:54 PM
--- NOTE | 2017-05-03 00:15 | NUR ---
Pt noted to be having seizure at this time. Nursing at bedside throughout, episode lasted <2 mins.
[2017-05-03 01:09] VITALS: BP 133/71
[2017-05-03] MEDS: DUONEB 0.5 MG-3 MG/3 ML SOLN IH SCH ×4 (02:29→20:52)
[2017-05-03] MEDS ORDERED: DILANTIN IV STA (03:42)
--- NOTE | 2017-05-03 03:50 | NUR ---
Pt noted to be having seizure at this time, episode lasted 1 min and 15 sec. Stayed with patient during episode, maintained safe positioning with patient during episode.
--- NOTE | 2017-05-03 04:25 | NUR ---
Pt found having another small seizure, lasting less than 1 minute. All extremities noted to be shaking during episode. Pt remained non-verbal. Episodes appear to be getting closer together from what has been observed by nursing.
[2017-05-03] MEDS: DILANTIN IV SCH ×3 (05:37→22:39)
[2017-05-03 05:44] VITALS: BP 131/78
--- NOTE | 2017-05-03 05:55 | NUR ---
Pt found having another small seizure, lasting < [address] Sanchez notified of amount of episodes through the night.
[2017-05-03] MEDS: SYNTHROID PO SCH (06:02)
[2017-05-03 07:47] VITALS: BP 146/83
[2017-05-03] MEDS: COREG PO SCH ×2 (08:33→21:00)
[2017-05-03] MEDS: CARDIZEM CD PO SCH (08:33)
[2017-05-03] MEDS: LIPITOR PO SCH (08:33)
[2017-05-03] MEDS: ZESTRIL PO SCH (08:33)
[2017-05-03] MEDS: NICOTINE 14MG PATCH TD SCH (09:52)
[2017-05-03] MEDS ORDERED: LANOLIN HYDROUS TP ONE (09:56)
[2017-05-03 11:33] VITALS: BP 123/83
[2017-05-03] MEDS: ATIVAN IV PRN (13:48)
[2017-05-03] MEDS ORDERED: NS 100ML 100 ML IV ONE ×2 (14:11→22:33)
--- NOTE | 2017-05-03 14:28 | PNH ---
SUBJECTIVE: Overnight, there have been no significant changes; although, she was somewhat more somnolent. In the evening, she was seen having tonic-clonic seizure activity. OBJECTIVE: VITAL SIGNS: T-max last 24 hours 99.0, pulse 83, respiratory rate is 18, blood pressure of 133/71, O2 saturations are 95% on 2 L nasal cannula. GENERAL: She is minimally arousable at the time of exam, although, between the episodes, she does respond better. HEENT: Her right pupil is significantly dilated compared to previous exam. Her right pupil is twice the size of the left pupil. It is minimally reactive. Sclerae anicteric. Oropharynx, visualized portions are clear. Mucous membranes are moist. NECK: Supple. No lymphadenopathy. CARDIOVASCULAR: At the time of exam was regular rate and rhythm with a faint systolic murmur right upper sternal border. LUNGS: She has some upper respiratory congestion, decreased at the bases, shallow inspiratory effort. ABDOMEN: Soft, bowel sounds are present, nontender to palpation. EXTREMITIES: No cyanosis or clubbing. She has some lower extremity edema. NEUROLOGIC: She has some tonic-clonic seizure activity and also has a dilated right pupil. IMAGING: She had a stat CT performed, which did show interval progression and enlargement of subdural hematoma appearing now along the right falx and right tentorium. ASSESSMENT AND PLAN: The patient is an 86-year-old woman here with end-stage chronic obstructive pulmonary disease with subdural hematoma, which has expanded somewhat with new onset seizures, likely secondary to the expanding subdural hematoma. 1. Will continue O2 protocol, nebulizer treatments, nicotine patch. 2. Will load with Dilantin in an attempt to try to control seizures. Will give p.r.n. Ativan. 3. Continue the current blood pressure medication, titrate per control. 4. She is code status DNR. TIME SPENT: With the patient on 05/02/2017 is 25 minutes. MD KLARISSA Galvan/DIRK TD: 05/03/2017 08:40 [facility]
[2017-05-03 16:00] VITALS: BP 141/95
[2017-05-03 20:00] VITALS: BP 158/84
[2017-05-04] MEDS: ATIVAN IV PRN ×2 (02:15→11:30)
[2017-05-04] MEDS: DUONEB 0.5 MG-3 MG/3 ML SOLN IH SCH ×4 (02:54→20:17)
[2017-05-04 04:00] VITALS: BP 110/68
[2017-05-04 05:53] LABS: BASOPHIL % 0.3 % (0.0-0.2); EOSINOPHIL % 0.3 % (0.0-5.0); HEMATOCRIT 42.7 % (36.0-46.0); LYMPHOCYTES # 1.7 10^3/uL (1.0-4.8); LYMPHOCYTES % 15.2 % (24.0-44.0); MEAN CELL HGB 28.5 pg (26-34); MEAN CELL HGB CONCENTRATION 32.8 g/dL (33-37); MEAN PLATELET VOLUME 11.2 fL (7.8-11.0); MONOCYTES # 0.9 10^3/uL (0.3-0.8); MONOCYTES % 8.3 % (5.0-12.0); NEUTROPHIL # 8.3 10^3/uL (1.8-7.7); NEUTROPHILS % 75.8 % (41.0-85.0); RED CELL DISTRIBUTION WIDTH 14.6 % (11.5-14.5); WHITE BLOOD CELL 10.9 10^3/uL (4.5-11.0)
[2017-05-04 06:13] LABS: CALCIUM 9.2 mg/dL (8.4-10.5); CARBON DIOXIDE 29.8 mmol/L (20.0-32)
[2017-05-04] MEDS: SYNTHROID PO SCH (06:30)
--- NOTE | 2017-05-04 06:30 | NUR ---
Report Received report and assumed care of pt
[2017-05-04 07:00] VITALS: BP 109/61
[2017-05-04] MEDS ORDERED: NS 100ML 100 ML IV ONE ×3 (07:27→21:30)
[2017-05-04] MEDS: DILANTIN IV SCH ×3 (07:30→21:33)
[2017-05-04] MEDS: CARDIZEM CD PO SCH (08:01)
[2017-05-04] MEDS: ZESTRIL PO SCH (08:01)
[2017-05-04] MEDS: COREG PO SCH ×2 (08:01→21:33)
[2017-05-04] MEDS: LIPITOR PO SCH (08:01)
--- NOTE | 2017-05-04 08:24 | PNH ---
SUBJECTIVE: Overnight, no acute events. She is somnolent most of the time. She does respond occasionally, wakes up. She is not eating well. OBJECTIVE: VITAL SIGNS: T-max last 24 hours is 98.9, pulse of 96, respiratory rate 20, blood pressure 124/65, O2 saturation 95% on room air. GENERAL: She is arousable, chronically ill-appearing lady. HEENT: Pupils equal, round and reactive to light. Sclerae are anicteric. Oropharynx is clear. Mucous membranes are moist. NECK: Supple. No lymphadenopathy. CARDIOVASCULAR: At the time of exam is tachycardic, regular rhythm. LUNGS: Decreased at the bases. Shallow inspiratory effort. ABDOMEN: Soft. Bowel sounds are present. Nontender to palpation. EXTREMITIES: No cyanosis or clubbing. Trace lower extremity edema. NEUROLOGIC: Grossly nonfocal. ASSESSMENT AND PLAN: The patient is an 86-year-old woman here with endstage chronic obstructive pulmonary disease, asthenia, hypertension, tobacco abuse, coronary artery disease with a recent fall with subdural hematoma. 1. The patient is severely limited in mobility. She had been mobilizing at home, occasionally using a walker. We will get PT and OT eval. Family has discussed and they want to revoke hospice at this point. They want to have PT and OT and possibly [facility] placement. She is still code status DNR. 2. Continue her current cardiovascular medications. 3. She has a subdural hematoma after a fall. We will follow clinically. She was accepted on transfer to [facility] for surgery consult due to the subdural hematoma although surgery is unlikely. Family decided not to pursue that option and keep her here and keep her comfortable and try to get her ambulating again. 4. We will titrate blood pressure medication to control hypertension. 5. Appropriate p.r.n. pain and nausea medications. Time spent with the patient is 25 minutes on 05/01/2017. MD KLARISSA Galvan/TANIYA TD: 05/03/2017 08:44 [facility]
[2017-05-04] MEDS: NICOTINE 14MG PATCH TD SCH (09:00)
[2017-05-04 12:00] VITALS: BP 129/81
[2017-05-04 16:52] VITALS: BP 133/93
--- NOTE | 2017-05-04 18:45 | NUR ---
Report Received report from Deisy Combs RN
[2017-05-04 20:24] VITALS: BP 137/95
[2017-05-05 01:04] VITALS: BP 130/91
[2017-05-05] MEDS: ATIVAN IV PRN ×2 (02:09→22:42)
[2017-05-05] MEDS: DUONEB 0.5 MG-3 MG/3 ML SOLN IH SCH ×4 (02:40→20:23)
[2017-05-05] MEDS ORDERED: NS 100ML 100 ML IV ONE ×2 (06:19→22:17)
[2017-05-05] MEDS: SYNTHROID PO SCH (06:23)
[2017-05-05] MEDS: DILANTIN IV SCH ×3 (06:23→22:21)
[2017-05-05 06:28] VITALS: BP 128/88
--- NOTE | 2017-05-05 06:30 | NUR ---
RECEIVED REPORT/ASSUMED CARE OF PATIENT AT THIS TIME
--- NOTE | 2017-05-05 06:50 | NUR ---
Report Report given to Grace Prado LVn
--- NOTE | 2017-05-05 07:10 | NUR ---
ALERT/ORIENTEDx1 (SELF) OU PERRL 2/BRISK LUNG SOUNDS CTA RUL ATIF RHONCI RML DIMINISHED AT B/L BASES WITH UNLABORED/EVEN/DEEP RESPIRATIONS ON O2@2L/M VIA N/C HEART TONES S1/S2 BOUNDING/REGULAR WITH CAP REFILL <3 PPPx4 STRONG/= ABD NONDISTENDED/NONTENDER/SOFT WITH ACTIVE BOWEL SOUNDSx4 INCONTINENT OF BLADDER/BOWEL (NOT OBSERVED) MAEx4 WITH WITH SEVERE WEAKNESS NO S/S OF PAIN OR DISCOMFORT AT THIS TIME IV ACCESS TO RIGHT FOREARM 20g ANGIO WITHOUT S/S OF REDNESS OR INFILTRATION AT SITE.
[2017-05-05 08:01] VITALS: BP 105/43
[2017-05-05] MEDS: CARDIZEM CD PO SCH (08:22)
[2017-05-05] MEDS: ZESTRIL PO SCH (08:22)
[2017-05-05] MEDS: COREG PO SCH ×2 (08:22→20:23)
[2017-05-05] MEDS: NICOTINE 14MG PATCH TD SCH (08:24)
[2017-05-05] MEDS: LIPITOR PO SCH (08:24)
--- NOTE | 2017-05-05 08:45 | NUR ---
TOLERATED PO MEDICATION WELL, WITHHELD ALL HTN MEDS RE: B/P 105/43, REFUSED AM MEAL, IV ACCESS FLUSHED WITHOUT DIFFICULTY, NO S/S OF PAIN OR DISCOMFORT
--- NOTE | 2017-05-05 09:54 | NUR ---
BED BATH GIVEN AT THIS TIME, ALEXIA CARE GIVEN LINECeline TRIMBLE, HAIR SHAMPOOED Addendum: 05/05/17 at 0955 by Chad Prado, LUZMA - Agency LUZMA DR. ABARCA PRESENT AT THIS TIME.
[2017-05-05 12:28] VITALS: BP 153/108
--- NOTE | 2017-05-05 12:40 | NUR ---
RESTING WITH OU CLOSED, REFUSED LUNCH AT THIS TIME, NO S/S OF PAIN OR DISCOMFORT, B/P 127/83 RECHECK
--- NOTE | 2017-05-05 13:15 | NUR ---
ASSISTED TO CHAIR AT THIS TIME, ALARM PLACED ON PATIENT, DENIES PAIN OR DISCOMFORT
--- NOTE | 2017-05-05 13:33 | NUR ---
IV ACCESS INFILTRATED, WILL OBTAIN ANOTHER SITE
--- NOTE | 2017-05-05 13:45 | NUR ---
NEW 20g ANGIO OBTAINED TO LEFT HAND, OLD SITE REMOVED WITH CATH TIP INTACT WITHOUT S/S OF INFECTION AT SITE
--- NOTE | 2017-05-05 14:40 | NUR ---
ASSISTED TO RESTROOM/BACK TO BED, NO S/S OF PAIN OR DISCOMFORT
--- NOTE | 2017-05-05 15:10 | NUR ---
AMBULATED ABARCA WITH PT, UP IN CHAIR AT THIS TIME WITH ALARM ON, DENIES PAIN OR DISCOMFORT, NO SZ ACTIVITY OF THIS TIME.
[2017-05-05 16:58] VITALS: BP 115/46
--- NOTE | 2017-05-05 17:42 | NUR ---
ASSISTED BACK TO BED, RESTING WITH OU OPEN WATCHING TELEVISION, DENIES PAIN OR DISCOMFORT AT THIS TIME.
--- NOTE | 2017-05-05 18:27 | NUR ---
REPORT GIVEN/CARE PASSED TO ON-COMING STAFF
--- NOTE | 2017-05-05 19:26 | NUR ---
Report Received report from Grace Prado RN
[2017-05-05 20:00] VITALS: BP 125/73
[2017-05-05] MEDS ORDERED: KEPPRA ONE (20:40)
[2017-05-05] MEDS: KEPPRA PO SCH (20:42)
--- NOTE | 2017-05-05 20:43 | NUR ---
Administered Keppra 200 mg per orders
[2017-05-05] MEDS ORDERED: KEPPRA NG SCH (21:00)
[2017-05-06] MEDS ORDERED: ZYPREXA ZYDIS ONE (00:22)
[2017-05-06] MEDS: ZYPREXA ZYDIS SL PRN ×2 (01:16→05:21)
--- NOTE | 2017-05-06 01:30 | PNH ---
DATE: 05/03/2017 SUBJECTIVE: ____ events overnight although she still continued to have some mild seizure activity. Activity has improved, but still present. She is awake and alert most of the day and does not have significant postictal signs. No other acute changes. OBJECTIVE: VITAL SIGNS: T-max last 24 hours 99.0, pulse of 101, respirations 19, blood pressure 123/83 and O2 saturation 94% on 2 liters nasal cannula. GENERAL: She is arousable, in no acute distress at time of exam. HEENT: Her right pupil is dilated. She has got ____ left pupil ____equally reactive, although unequal in size. Oropharynx is clear. Mucous membranes are moist. NECK: Supple, no lymphadenopathy. CARDIOVASCULAR: At time of exam, was tachycardic, regular rhythm. LUNGS: Clear bilaterally. No wheezing. ABDOMEN: Soft. Bowel sounds are present, nontender to palpation. EXTREMITIES: No cyanosis, clubbing. Trace edema. NEUROLOGIC: At the time of exam was grossly nonfocal. ASSESSMENT AND PLAN: The patient is an 86-year-old woman here with subdural hematoma with seizures that are currently uncontrolled. ____. 1. We will continue current medication of Dilantin. 2. O2 protocol. 3. PT, OT and speech management consulted. 4. Continue cardiovascular medications. 5. Time spent with the patient on 05/03/2017 is 25 minutes. Zachariah Sanchez MD DR: KLARISSA/lien JOB# [id number]
[2017-05-06] MEDS: DUONEB 0.5 MG-3 MG/3 ML SOLN IH SCH ×2 (02:16→09:07)
--- NOTE | 2017-05-06 02:47 | NUR ---
Patient resting in bed with eyes clsoed. Resp even and non labored. No s/s of distress noted at this time. Will continue to monitor. Call light within reach.
--- NOTE | 2017-05-06 02:58 | PNH ---
DATE: 05/04/2017 SUBJECTIVE: Overnight, her seizures were much improved. She still has a very small momentary seizure activity, but is much improved. Her mental status is also improved. No other acute changes noted. OBJECTIVE: VITAL SIGNS: T-max last 24 hours 98.5, pulse of 117, respiratory rate 18, blood pressure 133/93, O2 saturation 91% on 2 liter nasal cannula. GENERAL: She is arousable, chronic ill-appearing lady. HEENT: Her pupils were unequal with the right pupil dilated twice the left pupil, both reactive. Sclerae is anicteric. Oropharynx is clear. Mucous membranes are moist. NECK: Supple, no lymphadenopathy. CARDIOVASCULAR: At time of exam, is tachycardic, slightly irregular. LUNGS: Clear bilaterally with shallow inspiratory effort. ABDOMEN: Soft. Bowel sounds are present, nontender to palpation. EXTREMITIES: No cyanosis, clubbing or significant edema, although she has some lower extremity edema. NEUROLOGIC: Other than our findings, it is difficult to say if she does have some continuous seizure activity. ASSESSMENT AND PLAN: This patient is an 86-year-old woman here with advanced COPD, tobacco abuse with a subdural hematoma with tonic-clonic seizures they are improving and are controlled with severe debilitation. 1. Keppra, if she continues to have seizures. Dilantin is in therapeutic range. 2. Nebulizer treatments scheduled and as needed, O2 protocol. 3. PT, OT, speech consult. 4. Case management for placement in intermediate for rehab. Time spent with the patient is 25 minutes on 05/04/2017. Zachariah Sanchez MD DR: KLARISSA/lien JOB# [id number]
--- NOTE | 2017-05-06 03:36 | PNH ---
DATE: 05/05/2017 SUBJECTIVE: No acute events overnight. Seizures decreased in frequency and severity. OBJECTIVE: VITAL SIGNS: T-max last 24 hours 98.4, pulse of 111, respiratory rate 19, blood pressure 153/108, O2 saturation 91% on 2 liters nasal cannula. GENERAL: She is arousable, chronically ill-appearing lady. HEENT: Her pupils continue to be different with her right pupil dilated, but reactive. Left pupil is about half the size and reactive. Sclerae is anicteric. Oropharynx is clear. Mucous membranes are moist. NECK: Supple, no lymphadenopathy. CARDIOVASCULAR: At time of exam, was tachycardic, irregular. LUNGS: Clear bilaterally with shallow inspiratory effort. ABDOMEN: Soft. Bowel sounds are present, nontender to palpation. EXTREMITIES: No cyanosis, clubbing or significant edema. NEUROLOGIC: findings, the seizure activity is nonfocal. ASSESSMENT AND PLAN: This patient is an 86-year-old woman here with subdural hematoma with seizure disorder with atrial fibrillation with RVR, at the time of exam with COPD and severe debilitation. 1. Continue PT, OT and speech. 2. She is due to subdural hematoma. 4. We will continue cardiovascular medications at current doses. We will titrate for heart rate control as tolerated. She is on a calcium channel venessa and beta venessa. 5. Appropriate p.r.n. pain and nausea medication. 6. We will start Keppra, she is on Dilantin in therapeutic range and will follow clinically. Time spent with the patient on 05/05/2017 is 25 minutes. Zachariah Sanchez MD DR: KLARISSA/lien JOB# [id number]
[2017-05-06] MEDS ORDERED: DILANTIN PO SCH (06:00)
[2017-05-06] MEDS: SYNTHROID PO SCH (06:29)
--- NOTE | 2017-05-06 06:30 | NUR ---
RECEIVED REPORT/ASSUMED CARE OF PATIENT AT THIS TIME.
--- NOTE | 2017-05-06 06:53 | NUR ---
Report Report given to Grace Ramsay LVN
--- NOTE | 2017-05-06 07:18 | NUR ---
ALERT/ORIENTEDx1 (SELF) OU PERRL 2/BRISK LUNG SOUNDS CTA RUL ATIF RHONCI RML DIMINISHED AT B/L BASES WITH UNLABORED/EVEN/DEEP RESPIRATIONS ON O2@2L/M VIA N/C HEART TONES S1/S2 BOUNDING/REGULAR WITH CAP REFILL <3 PPPx4 STRONG/= ABD NONDISTENDED/NONTENDER/SOFT WITH ACTIVE BOWEL SOUNDSx4 INCONTINENT OF BLADDER/BOWEL (NOT OBSERVED) MAEx4 WITH WITH SEVERE WEAKNESS NO S/S OF PAIN OR DISCOMFORT AT THIS TIME LETHARGIC AFTER ZYPREXA THIS AM. BED ALARM ARMED
[2017-05-06] MEDS ORDERED: LIPITOR ONE (07:54)
[2017-05-06 08:35] VITALS: BP 154/95
[2017-05-06] MEDS: NICOTINE 14MG PATCH TD SCH (08:36)
[2017-05-06] MEDS: ZESTRIL PO SCH (08:36)
[2017-05-06] MEDS: COREG PO SCH (08:36)
[2017-05-06] MEDS: CARDIZEM CD PO SCH (08:36)
[2017-05-06] MEDS: KEPPRA PO SCH (08:36)
--- NOTE | 2017-05-06 08:45 | NUR ---
TOLERATED PO MEDICATION WELL, WITHHELD KEPPRA, ROUTE NOT AVAILABLE AT THIS TIME, NO IV ACCESS, NO S/S OF PAIN OR DISCOMFORT NOTED
[2017-05-06] MEDS ORDERED: LIPITOR PO SCH (09:00)
--- NOTE | 2017-05-06 09:39 | NUR ---
DR. ALVARES PRESENT AT THIS TIME.
[2017-05-06] MEDS ORDERED: PHEN100C PO (09:57)
[2017-05-06] MEDS ORDERED: OLAN5TAB5 SL (09:57)
[2017-05-06] MEDS ORDERED: LEVE100S PO (09:57)
[2017-05-06] MEDS ORDERED: NICO1PAT2 TD (09:57)
--- NOTE | 2017-05-06 10:19 | NUR ---
[facility] Nursing Report called in to [facility]. Answered all nurse questions. Nurse denies further questions or concerns.
--- NOTE | 2017-05-06 10:34 | DSH ---
DATE OF DISCHARGE: 05/06/2017 ADMITTING DIAGNOSES: Status post fall with seizures and subdural hematoma with underlying COPD, coronary artery disease, hypertension, hypothyroidism. DISCHARGE DIAGNOSES: 1. Subdural hematoma with DNR status in effect. 2. Seizure disorder, stable with underlying coronary disease, hypertension, hypothyroidism. HOSPITAL COURSE: The patient is an 86-year-old female who was under hospice care and she had a fall and hit her head. She was presented to the hospital with seizures. A CAT scan did confirm a subdural hematoma. Family elected not to have any aggressive measures and she is a do not resuscitate and they were comfortable with just treating the seizures. They did revoke hospice care when she was admitted to the hospital. She was on Keppra and Dilantin and her seizures have been controlled in the hospital, she has had no seizures for the past 24 hours. She gets combative during nighttime, which we think this as an affect of the subdural hematoma as well as the possibility of as an early onset dementia. I gave her a Zydis pill last night and she did well with that. Blood pressures have been erratic and we have been continuing her home medications, but she is a DNR status. She does have a DNR order in effect and at this time, we are getting her skilled therapy. She is a smoker and we put her on a nicotine patch and she is on 1 liter of oxygen right now, but she is stable from the seizure standpoint. She will be discharged to [facility] under the care of today. Regular diet will be ordered. I will continue the Keppra, Dilantin, Zydis, and nicotine patch and her home medications will be continued with the following: Albuterol nebulizer as needed, Xanax, aspirin, Lipitor, Coreg, Celexa, Diltiazem, levothyroxine, lisinopril, and Singulair. We will ask speech, occupational and physical therapies to evaluate her for ADLs and we will continue O2 at 1 liter to keep O2 sats above 91% and she is at high fall precautions at this point. Barbie Holliday MD DR: BREEZY/lien JOB# [id number]
--- NOTE | 2017-05-06 10:58 | NUR ---
[facility] PRESENT AT THIS TIME TO TRANSPORT PATIENT BACK TO [place], PATIENT OUT OF FACILITY IN STABLE CONDITION W/BELONGINGS
== END 2017-05-06 10:54 | DRG 40 ==
LOC: EDBD 11:39 → ER 11:39 → MS 15:42
PROVIDERS: ADMIT Internal Medicine; ATTEND Pediatrics
PROC: 0JQ00ZZ Repair Scalp Subcutaneous Tissue and Fascia, Open Approach (ICD-10-PCS; principal; 2017-04-30)
DX: S06.5X0A Traumatic subdural hemorrhage without loss of consciousness, initial encounter (principal); G93.40 Encephalopathy, unspecified; S01.81XA Laceration without foreign body of other part of head, initial encounter; J44.9 Chronic obstructive pulmonary disease, unspecified; F17.210 Nicotine dependence, cigarettes, uncomplicated; E03.9 Hypothyroidism, unspecified; H91.90 Unspecified hearing loss, unspecified ear; I10 Essential (primary) hypertension; I25.10 Atherosclerotic heart disease of native coronary artery without angina pectoris; Z66 Do not resuscitate; G40.909 Epilepsy, unspecified, not intractable, without status epilepticus; I48.91 Unspecified atrial fibrillation; F41.9 Anxiety disorder, unspecified; W19.XXXA Unspecified fall, initial encounter; Z90.49 Acquired absence of other specified parts of digestive tract; Y99.9 Unspecified external cause status; Y92.009 Unspecified place in unspecified non-institutional (private) residence as the place of occurrence of the external cause; Y93.9 Activity, unspecified; Z90.710 Acquired absence of both cervix and uterus; Z95.5 Presence of coronary angioplasty implant and graft
CPT/HCPCS: 12013; 36415; 70450; 71010; 80053; 80185; 81000; 85025; 87086; 94640; 97162; 99285; J0360; J2060; J7050; J7620; 97116-GP; 97530-GP; G8980-CL; G8981-CK; J1165

== ENCOUNTER 2017-09-26 03:04 | Inpatient (IN) | payer MEDICARE ==
[2017-09-26] VITALS (75 sets, daily range): BP systolic 92–151; BP diastolic 45–112
[~2017-09-26] VITALS: Ht 165.1 cm; Wt 73.5 kg
[~2017-09-26 03:04] MED LIST changes: +LEVE100S PO; +NICO-449 TD; +OLAN5TAB5 SL; +PHEN100C PO
[2017-09-26] MEDS ORDERED: SOLU-MEDROL ONE (03:12)
--- NOTE | 2017-09-26 03:12 | PCM.EKG ---
[facility] Test Date: 2017-09-26 Test Time: 03:10:57 Pat Name: GABRIEL SINGLETARY Department: [id number]3 Gender: F Outside Machinist Helper: BRENDA : 1930 Requested By: AYLA ARMENTA Order Number: [id number] Reading MD: Ayla ARMENTA Measurements Intervals Section Rate: 130 P: CO: QRS: 94 QRSD: 74 T: 26 QT: 292 QTc: 429 Interpretive Statements Atrial flutter with variable AV block Abnormal ECG No previous ECG available for comparison Electronically Signed On 09-26-2017 5:51:58 [employer] SHELTERED WORK[employer] SUPERVISOR by Ayla ARMENTA Please click the below link to view image of tracing.
[2017-09-26] MEDS ORDERED: SOLU-MEDROL IV STA (03:23)
[2017-09-26] MEDS ORDERED: XOPENEX IH STA (03:23)
[2017-09-26] MEDS ORDERED: XOPENEX IH ONE (03:44)
[2017-09-26] MEDS ORDERED: CARDIZEM IV STA (03:47)
[2017-09-26] MEDS ORDERED: CARDIZEM IV ONE (03:51)
[2017-09-26 03:54] LABS: BASOPHIL % 0.2 % (0.0-0.2); EOSINOPHIL # 0.1 10^3/uL (0.0-0.2); EOSINOPHIL % 0.4 % (0.0-5.0); HEMOGLOBIN 13.1 g/dL (12.0-15.0); LYMPHOCYTES # 1.5 10^3/uL (1.0-4.8); LYMPHOCYTES % 11.6 % (24.0-44.0); MEAN CELL HGB 27.5 pg (26-34); MEAN CORP VOLUME 91.6 fL (78-100); MEAN PLATELET VOLUME 10.4 fL (7.8-11.0); MONOCYTES # 1.7 10^3/uL (0.3-0.8); MONOCYTES % 12.8 % (5.0-12.0); NEUTROPHIL # 9.6 10^3/uL (1.8-7.7); NEUTROPHILS % 74.8 % (41.0-85.0); RED CELL DISTRIBUTION WIDTH 15.4 % (11.5-14.5); WHITE BLOOD CELL 12.9 10^3/uL (4.5-11.0)
--- NOTE | 2017-09-26 03:56 | ER.PDOC ---
General Chief Complaint: Dyspnea/Respdistress Stated Complaint: RESPIRATORY DISTRESS Time seen by MD: 03:53 Source: EMS, residential records Exam Limitations: clinical condition History of Present Illness Initial Comments Difficulty breathing Timing/Duration: 4-6 hours Severity: moderate Prior Episodes/Possible Cause: occasional episodes, chronic episodes Modifying Factors: improves with albuterol nebulizer Associated Symptoms: cough Prior symptoms/Treatment: Similar symptoms previous, Recenly Seen, Treated by Doctor Allergies: Coded Allergies: No Known Allergies (Unverified , 12/04/16) Home Meds Active Scripts Levetiracetam (LEVETIRACETAM) 100 Mg/1 Ml Solution, 200 MG PO BID, #120 ML 3 Refills Prov:LEDY ALVARES MD 05/06/17 Olanzapine (ZYPREXA ZYDIS) 5 Mg Tab.rapdis, 5 MG SL TID Y for AGITATION, #30 TAB 1 Refill Prov:LEDY ALVARES MD 05/06/17 Nicotine (NICOTINE PATCH) 1 Each Patch.td24, 1 EACH TD DAILY, #30 PATCH 3 Refills Prov:LEDY ALVARES MD 05/06/17 Phenytoin Sodium Extended (DILANTIN) 100 Mg Capsule, 100 MG PO TID, #90 CAPSULE 3 Refills Prov:LEDY ALVARES MD 05/06/17 Albuterol Sulfate (ALBUTEROL SULFATE) 2.5 Mg/3 Ml Vial.neb, 2.5 MG IH RTQ4 Y for WHEEZING, #30 AMPULE Prov:MELISA SANCHEZ MD 12/08/16 Reported Medications Alprazolam (ALPRAZOLAM) 0.25 Mg Tablet, 1 TAB PO PRN, #90 TAB 03/22/17 Montelukast Sodium (SINGULAIR) 10 Mg Tablet, 1 TAB PO DAILY, #90 TAB 4 Refills 12/07/16 Carvedilol 6.25MG (COREG 6.25MG) 6.25 Mg Tablet, 3.125 MG PO BID, #60 TAB 4 Refills 12/07/16 Aspirin (ASPIR 81) 81 Mg Tablet.dr, 1 TAB PO DAILY, #30 TAB 5 Refills 12/04/16 Atorvastatin 40MG (LIPITOR 40MG) 40 Mg Tablet, 1 TAB PO DAILY, #30 TAB 5 Refills 12/04/16 Diltiazem Hcl (DILTIAZEM 24HR ER) 180 Mg Cap.er.24h, 1 CAP PO DAILY, #30 CAP 5 Refills 12/04/16 Citalopram Hydrobromide (CITALOPRAM HBR) 20 Mg Tablet, 1 TAB PO DAILY, #30 TAB 5 Refills 12/04/16 Levothyroxine Sodium (LEVOTHYROXINE SODIUM) 25 Mcg Tablet, 1 TAB PO DAILY, #30 TAB 5 Refills 12/04/16 Lisinopril (LISINOPRIL) 10 Mg Tablet, 1 TAB PO DAILY, #30 TAB 5 Refills 12/04/16 Past Medical History Medical History: COPD, hypertension, thyroid disease Surgical History: appendectomy, cholecystectomy LMP (females 10-50): postmenopause Social History Smoking: non-smoker Alcohol Use: none Drug Use: none Review of Systems Constitutional: no symptoms reported Respiratory: see HPI Cardiovascular: no symptoms reported Gastrointestinal: no symptoms reported Musculoskeletal: no symptoms reported Psychiatric/Neurological: no symptoms reported All Other Systems: Reviewed and Negative Physical Exam General Appearance: Moderate Distress Neck: Non-Tender, Full Range of Motion, Supple, Normal Inspection Respiratory: chest non-tender, respiratory distress, decreased breath sounds, wheezing, expiration Cardiovascular: Normal Peripheral Pulses, Tachycardia, Irregularly Irregular Gastrointestinal: Normal Bowel Sounds, No Organomegaly, No Pulsatile Mass, Non Tender, Soft Extremities: Pedal Edema, Other (2 ulcers lateral right lower leg) Neurologic/Psychiatric: doughnut maker II-XII NML as Tested, No Motor/Sensory Deficits, Alert Results/Orders Results/Orders Laboratory Tests Test 09/26/17 03:10 09/26/17 03:30 Blood Gas Sample Site RT RADIAL ARTERY Blood Gas pH 7.335 (7.350-7.450) Blood Gas PCO2 57.6 mmHg (35.0-45.0) Blood Gas PO2 79.0 mmHg (75.0-100.0) Blood Gas HCO3 30.0 mmol/L (22.0-26.0) Blood Gas Base Excess 2.7 mmol/L (-2.0-2.0) Andre Test POSITIVE Arterial Blood Oxygen Saturation 94.3 % (95-) Deoxyhemoglobin 5.6 % (0.2-0.6) Carboxyhemoglobin 1.7 % (0.5-1.5) Methemoglobin 0.0 % (0.2-0.6) Total Hemoglobin 14.3 % (13.5-17.5) Total Oxygen Concentration 18.7 % (13.5-17.5) Lactic Acid (Blood Gas) 1.1 MMOL/L (0.5-1.0) Oxygen Delivery Method (LAB) NASAL CANNULA FiO2 30 % (20-101) Bicarbonate 31.8 mmol/L (23-27) White Blood Count 12.9 10^3/uL (4.5-11.0) Red Blood Count 4.77 10^6/uL (4.00-5.20) Hemoglobin 13.1 g/dL (12.0-15.0) Hematocrit 43.7 % (36.0-46.0) Mean Corpuscular Volume 91.6 fL (78-100) Mean Corpuscular Hemoglobin 27.5 pg (26-34) Mean Corpuscular Hemoglobin Concent 30.0 g/dL (33-37) Red Cell Distribution Width 15.4 % (11.5-14.5) Platelet Count 200 10^3/uL (150-400) Mean Platelet Volume 10.4 fL (7.8-11.0) Neutrophils (%) (Auto) 74.8 % (41.0-85.0) Lymphocytes (%) (Auto) 11.6 % (24.0-44.0) Monocytes (%) (Auto) 12.8 % (5.0-12.0) Neutrophils # (Auto) 9.6 10^3/uL (1.8-7.7) Lymphocytes # (Auto) 1.5 10^3/uL (1.0-4.8) Monocytes # (Auto) 1.7 10^3/uL (0.3-0.8) Absolute Immature Granulocyte (auto 0.02 10^3 u/L (0-2) Eosinophils % 0.4 % (0.0-5.0) Basophils % 0.2 % (0.0-0.2) Basophils # 0.0 10^3/uL (0.0-0.1) Eosinophil Count 0.1 10^3/uL (0.0-0.2) Prothrombin Time 11.5 SEC (9.8-11.9) Prothrombin Time INR (Non-Therap) 1.1 Activated Partial Thromboplast Time 26.8 SEC (24.67-30.72) D-Dimer 1.34 mg/L (0.19-0.49) Sodium Level 140 mmol/L (132-145) Potassium Level 4.0 mmol/L (3.6-5.2) Chloride Level 100.0 mmol/L (96-109) Carbon Dioxide Level 33.2 mmol/L (20.0-32) Anion Gap 10.8 Blood Urea Nitrogen 11 mg/dL (7-18) Creatinine 0.66 mg/dL (0.59-1.40) Estimated GFR () 102.3 (>/=60) BUN/Creatinine Ratio 16.0 Glucose Level 111 mg/dL (70-110) Calcium Level 9.1 mg/dL (8.4-10.5) Total Bilirubin 0.6 mg/dL (0.2-1.0) Aspartate Amino Transf (AST/SGOT) 32 U/L (0-35) Alanine Aminotransferase (ALT/SGPT) 38 U/L (12-78) Alkaline Phosphatase 177 U/L (50-136) Total Creatine Kinase 46 U/L (26-192) Creatine Kinase MB 1.1 ng/mL (0.5-3.6) Troponin I < 0.02 ng/mL (0.00-0.05) Pro-B-Type Natriuretic Peptide 1320 pg/mL (0-450) Total Protein 7.2 g/dL (6.4-8.2) Albumin 3.3 g/dL (3.4-5.0) Globulin 3.9 Percent Immature Gran (Cell Imm) 0.20 % (0.00-0.50) Administered Medications Medications (Trade) Dose Ordered Sig/Jose Route PRN Reason Start Time Stop Time Status Last Admin Dose Admin Levalbuterol HCl (Xopenex) 1.25 mg STAT STAT IH 09/26/17 03:23 09/26/17 03:26 DC 09/26/17 03:23 Methylprednisolone Sodium Succinate (Solu-Medrol) 125 mg STAT STAT IV 09/26/17 03:23 09/26/17 03:26 DC 09/26/17 03:55 Diltiazem HCl (Cardizem) 20 mg STAT STAT IV 09/26/17 03:47 09/26/17 03:48 DC 09/26/17 03:55 Digoxin (Lanoxin) 250 mcg STAT STAT IV 09/26/17 04:12 09/26/17 04:14 DC 09/26/17 04:18 Levofloxacin/ Dextrose 150 ml @ 100 mls/hr STAT STAT IV 09/26/17 04:12 09/26/17 05:41 09/26/17 04:50 Lorazepam (Ativan) 1 mg STAT STAT IV 09/26/17 04:30 09/26/17 04:31 DC 09/26/17 04:36 EKG/XRAY/CT/US EKG Comments: A fib with RVR XRAY: chest (COPD) Departure Time of Disposition: 05:26 Disposition: 09 ADMITTED INPATIENT Impression: Primary Impression: Respiratory failure, acute Additional Impressions: COPD exacerbation Atrial fibrillation with RVR Condition: Critical If Transfer, List PT Destinati: ICU Referrals: PCP,UNKNOWN (PCP) PRIMARY CARE PROVIDER Comments Admitted to Dr. Sanchez Duration or Time Spent with Pa: 60 mins Critical Care Note Total Time (mins): 60 Problem Qualifiers Primary Impression: Respiratory failure, acute Respiratory failure complication: hypoxia and hypercapnia Qualified Codes: J96.01 - Acute respiratory failure with hypoxia; J96.02 - Acute respiratory failure with hypercapnia AYLA ARMENTA MD Sep 26, 2017 03:55
[2017-09-26] MEDS ORDERED: NS 1000ML 1,000 ML ONE ×2 (04:05→13:53)
[2017-09-26] MEDS ORDERED: LANOXIN ONE (04:06)
--- NOTE | 2017-09-26 04:10 | NUR ---
family members requested Dr Mas to look at wound to RLE, OK Dressing removed. Dr Mas in . Wound culture collected, taken to lab.
[2017-09-26] MEDS ORDERED: LANOXIN IV STA (04:12)
[2017-09-26] MEDS ORDERED: LEVAQUIN 150 ML IV STA (04:12)
--- NOTE | 2017-09-26 04:13 | NUR ---
PORTABLE XRAY WITH PT
[2017-09-26] MEDS ORDERED: ATIVAN ONE (04:24)
[2017-09-26] MEDS ORDERED: ATIVAN IV STA (04:30)
--- NOTE | 2017-09-26 04:30 | NUR ---
VERBAL ORDER VERBAL ORDER FROM DR ARMENTA FOR 1MG ATIVAN IV AT THIS TIME.
[2017-09-26] MEDS ORDERED: LEVAQUIN 150 ML IV ONE (04:38)
--- NOTE | 2017-09-26 04:39 | DIREP ---
PROCEDURE:CHEST 1 VIEW COMPARISON:[facility], CR, XRAY CHEST SINGLE VW, 04/30/2017, 11:31 AM. INDICATIONS:Dyspnea FINDINGS: LUNGS/PLEURA:Interstitial scarring noted throughout the lungs. No focal consolidation, pleural effusion or pneumothorax. VASCULATURE:Normal. Unremarkable pulmonary vasculature. CARDIAC:Mild cardiomegaly. MEDIASTINUM:Atherosclerotic aorta with no visible aneurysm. BONES:Normal. No fracture or visible bony lesion. OTHER:EKG leads overlie the chest. CONCLUSION: 1. COPD/emphysema with interstitial scarring. 2. No focal infiltrate. 3. Mild cardiomegaly. 4. No change from prior. Dictated by: Rudi Sellers M.D. on 09/26/2017 at 04:37 AM
[2017-09-26 04:43] LABS: ALANINE AMINOTRANSFERASE 38 U/L (12-78); ALKALINE PHOSPHATASE 177 U/L (50-136); ASPARTATE AMINO TRANSFERASE 32 U/L (0-35); CALCIUM 9.1 mg/dL (8.4-10.5); CARBON DIOXIDE 33.2 mmol/L (20.0-32); GLUCOSE 111 mg/dL (70-110)
[2017-09-26 04:48] LABS: ABG PCO2 57.6 mmHg (35.0-45.0); ABG PH 7.335 (7.350-7.450); BE(B) 2.7 mmol/L (-2.0-2.0)
--- NOTE | 2017-09-26 04:52 | NUR ---
DR TEVIN CLEARYA ON DR ABARCA AT THIS TIME ABOUT PT.
--- NOTE | 2017-09-26 05:30 | PRM.ACF1 ---
Date and Time Date and Time Time: 05:29 Admission Criteria Forms RESPIRATORY FAILURE GRG ( Place 'X' for any and all applicable criteria): Hospital admission is needed for appropriate care of the patient because of acute respiratory failure or insufficiency as indicated by 1 or more of the following (1)(2)(3)(4)(5)(6)(7)(8 ): [x ]I. Mechanical ventilation needed (acute invasive or noninvasive) [ ]II. Severe ventilation deficit as indicated by 1 or more of the following ( 9) [ ]a) Uncompensated Respiratory acidosis (pH < 7.35 and PaCO2 > 40 mmHg (5.3 kPa)) [ ]b) Airflow measurements < 25% of predicted (eg, PEFR < 100 L/min) [ ]c) FVC < 15 mL/kg of ideal body weight, or 50% decrease in vital capacity from baseline [ ]III. Noncardiac pulmonary edema not resolving with rapid emergency treatment (8) [ ]IV. Severe respiratory distress as indicated by 1 or more of the following: [ ]a) Severe tachypnea (respiratory rate greater than 30, greater than 45 for 6-month-old, greater than 60 for ) [ ]b) Severe hypoxemia (partial pressure of oxygen less than 50 mm Hg ( 6.7 kPa) on greater than 50% oxygen or partial pressure of oxygen to FIO2 ratio less than 200) [ ]c) Mental status deterioration from respiratory disease [ ]V. Airway obstruction or inadequate protection [A](10)(11) The original [employer] content created by [employer] has been revised. The portions of the content which have been revised are identified through the use of italic text, and [employer] has neither reviewed nor approved the modified material. All other unmodified content is copyright [employer]. Please see references footnoted in the original [employer] edition 2014 AYLA ARMENTA MD Sep 26, 2017 05:30
--- NOTE | 2017-09-26 05:50 | NUR ---
RECEIVED FROM ER TRANSPORTED VIA STRETCHER, ACCOMPANIED BY JEREMIAH RN, JOAO RN AND LEO RT. O2 ONGOING. IV FLUIDS RUNNING DURING TRANSPORT. TRANSFERRED TO ICU BED 3 ON 3 PERSON ASSIST. HOOKED TO BIPAP BY RT. ASLEEP. SEE ASSESSMENT
--- NOTE | 2017-09-26 05:51 | NUR ---
WOUND PHOTOS TAKEN MEASURING STICKERS NOT IN CONTACT WITH OPEN WOUNDS DURING PHOTO TAKING.
--- NOTE | 2017-09-26 06:19 | NUR ---
ICU PT TRANSPORTED TO ICU3 VIA STRETCHER. BELONGINGS TAKEN WITH PT. REPORT GIVEN TO ASHWIN VASQUEZ.
[2017-09-26] MEDS: SOLU-MEDROL IV SCH ×3 (06:51→21:05)
--- NOTE | 2017-09-26 07:00 | NUR ---
Dr. Sanchez at bedside. Assess the patient.
--- NOTE | 2017-09-26 07:20 | NUR ---
REPORT REPORT RECEIVED FROM 6PM SHIFT. PATIENT RESTING IN BED WITH EYES CLOSED, OCCASIONAL RESTLESSNESS NOTED. CALL LIGHT IN REACH. ASSUME CARE.
--- NOTE | 2017-09-26 07:20 | NUR ---
Report received from outgoing shift nurse and assumed care.
--- NOTE | 2017-09-26 07:45 | NUR ---
Patient lying in bed asleep. As per report received, patient received 1 mg of Ativan in the ER. on RA with SPO2 at 93%, IV G 18 L AC SL and IV G 20 R wrist with NS infusing at 100 ml/hr. Call patient name, no response, tap the patient's shoulder, no response, sternal rub done, patient open her eyes and went back to sleep. Clean patient's face with wet soapy wash rag. Bed in low lock position. Side rails up x2. Call light within reach.
[2017-09-26] MEDS: DUONEB 0.5 MG-3 MG/3 ML SOLN IH SCH ×3 (07:53→20:48)
[2017-09-26] MEDS ORDERED: DUONEB 0.5 MG-3 MG/3 ML SOLN IH SCH (08:00)
[2017-09-26] MEDS ORDERED: LEVAQUIN 100 ML IV SCH (09:00)
--- NOTE | 2017-09-26 09:15 | NUR ---
Dr. Sanchez called the unit. Place patient on 2L NC from BIPAP. Notified RT Elizabeth
--- NOTE | 2017-09-26 09:20 | NUR ---
Patient switch to 2L NC from BIPAP.
[2017-09-26] MEDS ORDERED: CELEXA PO SCH (09:30)
[2017-09-26] MEDS: KEPPRA PO SCH ×2 (09:30→20:58)
[2017-09-26] MEDS ORDERED: ULTRAM PO PRN (09:30)
[2017-09-26] MEDS ORDERED: TYLENOL PO PRN (09:30)
[2017-09-26] MEDS ORDERED: NICOTINE 14MG PATCH TD SCH (09:30)
[2017-09-26] MEDS ORDERED: ZYPREXA ZYDIS SL PRN (09:30)
[2017-09-26] MEDS ORDERED: CARDIZEM CD PO SCH (09:30)
[2017-09-26] MEDS ORDERED: ZOFRAN IV PRN (09:30)
[2017-09-26] MEDS ORDERED: ZESTRIL PO SCH (09:30)
--- NOTE | 2017-09-26 10:14 | NUR ---
DISCHARGE PLANNING: PT IS CURRENTLY A RESIDENT AT [facility]. [facility] WAS NOTIFIED OF PT'S ADMISSION AND DUE TO PT BEING ON HOSPICE. Yancy BECKER, RN [facility] WET PROCESS MILLER HEAD STATED SINCE PT IS ON HOSPICE FOR ADMITTED DIAGNOSIS THEY ARE GOING TO HAVE TO DISCHARGE PT FROM HOSPICE SERVICES AND WILL RESUME AFTER PT IS DISCHARGED. Jani RAMESH WITH [facility] NOTIFIED. GOAL FOR PT TO RETURN BACK TO [facility]. NO FURTHER NEEDS NOTED AT THIS TIME. SS TO CONTINUE TO MONITOR AND ASSIST WITH DISCHARGE PLANNING.
[2017-09-26] MEDS: COREG PO SCH ×2 (10:47→20:57)
[2017-09-26] MEDS: DILANTIN PO SCH ×3 (10:47→20:56)
[2017-09-26] MEDS: SYNTHROID PO SCH (10:47)
--- NOTE | 2017-09-26 12:44 | NUR ---
Dr. Sanchez called the unit and check on the patient. Notified this nurse that patient is with [facility].
--- NOTE | 2017-09-26 12:55 | NUR ---
Talk to Case ([facility] sales representative [employer]) about patient's status with hospice. As per Case, patient needs to be discharge under hospice since being admitted in the hospital. [facility] will send a sales representative [employer] in the unit to discuss coarse of action with family.
[2017-09-26] MEDS ORDERED: VENTOLIN IH PRN (13:30)
--- NOTE | 2017-09-26 13:30 | NUR ---
[facility] member services representative in the unit.
--- NOTE | 2017-09-26 13:43 | HPH ---
ADMIT DATE: 09/26/2017 CHIEF COMPLAINT: Respiratory distress. HISTORY OF PRESENT ILLNESS: The patient is an 86-year-old woman with a past medical history significant for COPD, tobacco abuse, hypertension, coronary artery disease, anxiety disorder, and hypothyroidism. She [facility] known in [facility]. She is code status DNR. She was brought to the Emergency Room with complaints of respiratory distress. Per the ER report, upon arrival to the Emergency Room, she was tachypneic and having some increased work of breathing. She has known COPD and continues to smoke. Reportedly, the onset of symptoms was about 4 to 6 hours prior to presentation to the Emergency Room. She was placed on BiPAP in the Emergency Room after blood gas revealed a pCO2 of 57. There was no other acute change known. The patient was somnolent at the time of exam, and the history from her is minimal. PAST MEDICAL HISTORY: COPD, tobacco abuse, hypertension, coronary artery disease, anxiety disorder, and hypothyroidism. PAST SURGICAL HISTORY: Appendectomy, cholecystectomy, hysterectomy, knee surgery, and PTCA with stents placed. ALLERGIES: NO KNOWN DRUG ALLERGIES. HOME MEDICATIONS: The home medication list currently includes albuterol p.r.n., Xanax p.r.n., aspirin 81 mg daily, atorvastatin 40 mg daily, Carvedilol 3.125 mg p.o. b.i.d., citalopram 20 mg daily, diltiazem 180 mg daily, Keppra 200 mg b.i.d., levothyroxine 25 mcg daily, lisinopril 10 mg daily, Singulair 10 mg daily, nicotine patch daily, Zyprexa Zydis as needed for agitation, and Dilantin 100 mg 3 times a day. SOCIAL HISTORY: She is a [facility] of a [facility]. She continues to smoke. No illicit drug use or alcohol use. FAMILY HISTORY: Negative for early coronary artery disease or diabetes. REVIEW OF SYSTEMS: Unable to obtain due to the patient's altered mental status. PHYSICAL EXAMINATION: VITAL SIGNS: Vitals upon arrival: Height is 165.1 cm, weight 58.97 kilograms, BMI 21.6, temperature 97.9 degrees Fahrenheit, pulse was initially 150 and irregular, respiratory rate 30, blood pressure 152/110 mmHg, and O2 saturation 88% on 2-liter nasal cannula. GENERAL: She was arousable with sternal rub. A chronically ill-appearing lady. HEENT: Pupils were equal, round, equal, round, and reactive to light. Sclerae were anicteric. Oropharynx visualized portions were clear. Mucous membranes were moist. NECK: The neck was supple, no lymphadenopathy. CARDIOVASCULAR: At the time of exam was tachycardic and irregular. PULMONARY: Lungs with decreased aeration in all lung beltran equally. No wheezing at the time of exam. ABDOMEN: The abdomen was soft. Bowel sounds were present. Nontender to palpation. EXTREMITIES: No cyanosis or clubbing. Trace lower extremity edema. NEUROLOGIC: Grossly nonfocal. LABORATORY DATA: CBC: White count 12.9, hemoglobin 13.1, and platelets 200. DIFFERENTIAL: 75% neutrophils, 11% lymphocytes, and 13% monocytes. METABOLIC PROFILE: Sodium 140, potassium 4.0, chloride 100, CO2 33, BUN 11, creatinine 0.66, glucose 111, calcium 9.1, total bilirubin 0.6, AST 32, ALT 30, alkaline phosphatase 177, total CK 46, CK-MB 1.1, troponin I less than 0.02, proBNP 1320, total protein 7.2, and albumin 3.3. Blood gas in the Emergency Room: pH 7.335, pCO2 57.6, pO2 79, lactate 1.1, and base excess 2.7. Coagulation studies: PT 11.5 and PTT 26.8. D-dimer was 1.34. IMAGING STUDIES: Chest x-ray performed in the Emergency Room reveals changes consistent with COPD; otherwise, negative-acute. ASSESSMENT AND PLAN: The patient is an 86-year-old woman here with COPD exacerbation with a mild [id number] diastolic heart failure with atrial fibrillation with a rapid ventricular response initially, and multiple other medical problems: 1. We will titrate off of BiPAP and place her on nasal cannula. Her pCO2 is only marginally elevated, and likely close to her baseline. 2. Nicotine patch for smoking cessation. 3. Continue her cardiovascular medications. 4. She is on Keppra, she has a seizure disorder. Continue the Keppra at the current dose and also Dilantin. 5. Continue IV antibiotics, steroids, and nebulizer treatments. Time spent on September 26, 2017: 45 minutes Zachariah Sanchez MD DR: KLARISSA/lien JOB# [id number]
--- NOTE | 2017-09-26 15:10 | NUR ---
Dr. Sanchez at bedside. Family requested to discuss plan of care for the patient.
--- NOTE | 2017-09-26 18:45 | NUR ---
Report given to incoming shift nurse and relinquished care.
--- NOTE | 2017-09-26 19:00 | NUR ---
PT RECEIVED ASSUMED CARE. STARTED ON LATERAL BED ROTATION. SIDE RAILS UP X4. PLACED ONE PILLOW TO KEEP BOTH HEELS FLOATED. SEE ASSESSMENT.
--- NOTE | 2017-09-26 19:50 | NUR ---
DR ABARCA NOTIFIED RE: PT CURRENT CONDITION. IV ON SALINE LOCK. NO IV FLUIDS ORDERED. PT HAS NO SPONTANEOUS EYE OPENING TO VERBAL STIMULI. WITHDRAWS EXTREMITIES WHEN TOUCHED.
--- NOTE | 2017-09-26 20:00 | NUR ---
TELEPHONE ORDER RECEIVED FOR LR AT 150 ML/HR FROM DR ABARCA. CALI.
[2017-09-26] MEDS ORDERED: LACTATED RINGERS 1,000 ML ONE (20:03)
[2017-09-26] MEDS: LACTATED RINGERS 1,000 ML IV SCH (20:59)
[2017-09-26] MEDS ORDERED: SINGULAIR PO SCH (21:00)
[2017-09-26] MEDS ORDERED: LIPITOR PO SCH (21:00)
--- NOTE | 2017-09-26 23:17 | NUR ---
MAINTAINED ON LATERAL BED ROTATION. KEPT BOTH HEELS FLOATED USING ONE PILLOW. NOTED INTERMITTENT NON PRODUCTIVE COUGHING. STANDBY SUCTION AT BEDSIDE.
[2017-09-27] VITALS (40 sets, daily range): BP systolic 98–163; BP diastolic 38–108
[2017-09-27] MEDS: LACTATED RINGERS 1,000 ML IV SCH (01:44)
--- NOTE | 2017-09-27 02:30 | NUR ---
COUGHING PRODUCTIVE NON EXPECTORATING COUGH NOTED, CRACKLES TO ALL LUNG YE UPON AUSCULTATION. WITH AUDIBLE ADVENTITIOUS SOUND. URINE OUTPUT LESS THAN 200 ML FOR 6 HRS. TEMPORARILY STOPPED IV FLUIDS. ELEVATED HEAD OF BED TO 45 DEGREES. SUCTION ON STANDBY. Addendum: 09/27/17 at 0656 by Franny oLpez RN NOTED INCREASING BP 150/ 112, HR RANGING BET. 120-130. NOTED DECREASE IN BP AND HR SOON THE IV FLUIDS WERE TEMPORARILY DISCONTINUED.
[2017-09-27] MEDS: DUONEB 0.5 MG-3 MG/3 ML SOLN IH SCH ×4 (03:23→20:41)
--- NOTE | 2017-09-27 05:51 | NUR ---
PT. TALKING AND RESPONSIVE TO HOSPITAL STAFF. ON & OFF COMPREHENSION AND APPROPRIATENESS OF ANSWERS NOTED. WAKING HOURS LASTING BET. 5-10 MINUTES THEN WILL GO BACK TO SLEEP. INCREASED HEAD OF BED TO [address] ABARCA NOTIFIED.
[2017-09-27 05:55] LABS: BASOPHIL % 0.1 % (0.0-0.2); HEMOGLOBIN 13.7 g/dL (12.0-15.0); LYMPHOCYTES # 1.1 10^3/uL (1.0-4.8); LYMPHOCYTES % 8.6 % (24.0-44.0); MEAN CELL HGB 27.4 pg (26-34); MEAN CELL HGB CONCENTRATION 29.9 g/dL (33-37); MEAN CORP VOLUME 91.6 fL (78-100); MEAN PLATELET VOLUME 10.5 fL (7.8-11.0); MONOCYTES # 0.9 10^3/uL (0.3-0.8); MONOCYTES % 7.6 % (5.0-12.0); NEUTROPHIL # 10.3 10^3/uL (1.8-7.7); NEUTROPHILS % 83.5 % (41.0-85.0); RED CELL DISTRIBUTION WIDTH 15.3 % (11.5-14.5); WHITE BLOOD CELL 12.3 10^3/uL (4.5-11.0)
--- NOTE | 2017-09-27 06:03 | NUR ---
URINE OUTPUT [address] ABARCA NOTIFIED RE: URINE OUTPUT, PRODUCTIVE COUGH, CRACKLES UPON AUSCULTATION
[2017-09-27 06:07] LABS: CALCIUM 9.3 mg/dL (8.4-10.5); CARBON DIOXIDE 33.5 mmol/L (20.0-32)
[2017-09-27] MEDS: SYNTHROID PO SCH (06:17)
[2017-09-27] MEDS: SOLU-MEDROL IV SCH (06:17)
--- NOTE | 2017-09-27 06:52 | NUR ---
ENDORSED TO AM SHIFT NO ORDERS RECEIVED FROM DR ABARCA YET. DURING BEDSIDE REPORTING, ORAL SUCTIONED CREAMY YELLOW THICK MUCUS.
--- NOTE | 2017-09-27 07:00 | NUR ---
RECEIVED REPORT AND PATIENT CARE ASSUMED.
--- NOTE | 2017-09-27 07:35 | NUR ---
DR. ALVARES AT BEDSIDE ASSESSING PATIENT. PATIENT TO TRANSFER TO MED/SURG
--- NOTE | 2017-09-27 07:37 | PRM.PN ---
Subjective Subjective Date: Sep 27, 2017 Time: 07:15 Subjective Pt c/o being cold; no CP, no abd pains; no problems breathing now Patient History: Alzheimer's disease 32 MOTHER 33 FATHER VTE VTE Risk Total Score: 3 VTE Risk Score VTE Risk: Score 0-1 = Low Risk (Aggressive mobilization; early ambulation; no VTE prophylaxis required) Score 2: Moderate Risk (Intermittent/Pneumatic Compression Device OR Lovenox/Heparin/Coumadin) Score 3-4: High Risk (Intermittent/Pneumatic Compression Device AND Lovenox/Heparin/Coumadin) Score > or =5: Highest Risk (Intermittent/Pneumatic Compression Device AND Lovenox/Heparin/Coumadin) Antico:Hep/LMWH/Coum/Xarelto: Yes Mechanical device ordered: No Review of Systems Constitutional: No: Fever Eyes: No: Vision change, Conjunctivae inflammation, Eyelid inflammation ENT: No: Ear pain, Ear discharge, Nose pain, Nose discharge, Nose congestion, Mouth pain, Mouth swelling Respiratory: No: Cough, Shortness of breath Cardiovascular: No: Chest Pain, Palpitations, Orthopnea Gastrointestinal: No: Nausea, Vomiting, Abdominal Pain Genitourinary: Other (has mahajan catheter) Neurological: No: Seizures Allergies: Coded Allergies: No Known Allergies (Unverified , 12/04/16) Scheduled Alprazolam (Alprazolam), 1 TAB PO PRN, (Reported) Aspirin (Aspir 81), 1 TAB PO DAILY, (Reported) Atorvastatin 40MG (Lipitor 40MG), 1 TAB PO DAILY, (Reported) Carvedilol 6.25MG (Coreg 6.25MG), 3.125 MG PO BID, (Reported) Citalopram Hydrobromide (Citalopram Hbr), 1 TAB PO DAILY, (Reported) Diltiazem Hcl (Diltiazem 24HR Er), 1 CAP PO DAILY, (Reported) Levetiracetam (Levetiracetam), 200 MG PO BID Levothyroxine Sodium (Levothyroxine Sodium), 1 TAB PO DAILY, (Reported) Lisinopril (Lisinopril), 1 TAB PO DAILY, (Reported) Montelukast Sodium (Singulair), 1 TAB PO DAILY, (Reported) Nicotine (Nicotine Patch), 1 EACH TD DAILY Phenytoin Sodium Extended (Dilantin), 100 MG PO TID Scheduled PRN Albuterol Sulfate (Albuterol Sulfate), 2.5 MG IH RTQ4 PRN for WHEEZING Olanzapine (Zyprexa Zydis), 5 MG SL TID PRN for AGITATION Objective Vitals and I/O Vital Sign - Last 24 Hours 09/26/17 09/26/17 09/26/17 09/26/17 07:45 07:45 07:48 07:50 Temp 97.5 Pulse 98 100 100 Resp 19 18 18 B/P (MAP) 101/64 (76) Pulse Ox 93 93 O2 Delivery Room Air CPAP Bi-pap FiO2 30 30 09/26/17 09/26/17 09/26/17 09/26/17 07:57 07:57 08:00 08:04 Pulse 100 100 100 100 Resp 18 18 19 18 B/P (MAP) 103/56 (72) Pulse Ox 93 93 94 09/26/17 09/26/17 09/26/17 09/26/17 08:15 08:30 08:45 09:00 Pulse 105 95 102 106 Resp 19 19 18 15 B/P (MAP) 108/59 (75) 108/59 (75) 118/65 (82) 113/69 (84) Pulse Ox 94 94 94 09/26/17 09/26/17 09/26/17 09/26/17 09:15 09:30 09:45 10:00 Pulse 100 94 107 97 Resp 18 19 19 20 B/P (MAP) 105/61 (76) 118/59 (78) 114/61 (78) 107/63 (78) Pulse Ox 94 96 95 09/26/17 09/26/17 09/26/17 09/26/17 10:15 10:30 10:45 10:45 Pulse 103 93 112 98 Resp 15 19 18 B/P (MAP) 116/60 (78) 93/60 (71) 100/58 (72) Pulse Ox 95 92 96 O2 Delivery Nasal Cannula O2 Flow Rate 2.00 FiO2 28 09/26/17 09/26/17 09/26/17 09/26/17 10:46 10:47 10:47 11:00 Pulse 97 94 100 Resp 17 B/P (MAP) 100/58 100/58 100/58 100/53 (69) Pulse Ox 96 1209/26/17 09/26/17 09/26/17 11:15 11:30 11:45 12:00 Pulse 109 109 109 Resp 21 19 21 B/P (MAP) 106/47 (66) 117/57 (77) 115/64 (81) Pulse Ox 95 O2 Delivery Room Air 09/26/17 09/26/17 09/26/17 09/26/17 12:00 12:15 12:30 12:45 Pulse 104 93 93 Resp 18 18 18 B/P (MAP) 112/50 (70) 109/54 (72) 100/65 (77) 102/68 (79) Pulse Ox 96 97 97 09/26/17 09/26/17 09/26/17 09/26/17 12:58 13:00 13:05 13:15 Pulse 114 114 97 Resp 18 18 19 B/P (MAP) 124/64 (84) 135/85 (102) Pulse Ox 95 94 95 97 09/26/17 09/26/17 09/26/17 09/26/17 13:30 13:45 14:00 14:15 Pulse 99 101 96 93 Resp 25 30 27 20 B/P (MAP) 119/79 (92) 109/65 (80) 116/83 (94) 97/63 (74) Pulse Ox 98 92 92 85 09/26/17 09/26/17 09/26/17 09/26/17 14:30 14:45 15:00 15:15 Pulse 105 114 105 120 Resp 19 21 15 B/P (MAP) 121/71 (88) 123/72 (89) 114/76 (89) 138/94 (109) Pulse Ox 92 90 86 97 09/26/17 09/26/17 09/26/17 09/26/17 15:30 15:45 15:46 16:00 Pulse 109 128 Resp 18 B/P (MAP) 142/79 (100) 146/92 (110) Pulse Ox 96 97 95 O2 Delivery Room Air 09/26/17 09/26/17 09/26/17 09/26/17 16:00 16:15 16:30 16:45 Pulse 109 98 105 Resp 21 18 19 B/P (MAP) 132/75 (94) 108/70 (83) 112/67 (82) 100/72 (81) Pulse Ox 95 96 97 96 09/26/17 09/26/17 09/26/17 09/26/17 17:00 17:15 17:16 17:30 Pulse 101 104 106 Resp 23 19 18 B/P (MAP) 110/69 (83) 121/90 (100) 125/84 (98) Pulse Ox 93 97 98 88 09/26/17 09/26/17 09/26/17 09/26/17 17:45 18:00 18:15 18:30 Pulse 99 105 111 98 Resp 21 19 20 17 B/P (MAP) 130/86 (101) 106/63 (77) 133/94 (107) 106/63 (77) Pulse Ox 89 91 90 92 09/26/17 09/26/17 09/26/17 09/26/17 18:45 19:00 19:00 19:15 Temp 97.4 Pulse 80 88 98 Resp 17 19 16 B/P (MAP) 97/50 (66) 99/53 (68) 99/60 (73) Pulse Ox 93 93 93 O2 Delivery Room Air O2 Flow Rate 2.00 09/26/17 09/26/17 09/26/17 09/26/17 19:30 19:45 20:00 20:16 Pulse 90 92 98 98 Resp 22 18 20 16 B/P (MAP) 102/61 (75) 123/71 (88) 117/63 (81) 151/93 (112) Pulse Ox 94 100 96 96 09/26/17 09/26/17 09/26/17 09/26/17 20:17 20:23 20:30 20:45 Pulse 100 105 94 98 Resp 15 16 18 23 B/P (MAP) 150/88 (108) 132/85 (101) 114/73 (87) 106/53 (70) Pulse Ox 97 97 94 93 09/26/17 09/26/17 09/26/17 09/26/17 20:46 20:47 20:54 20:57 Pulse 95 95 95 97 Resp 20 20 20 B/P (MAP) 134/76 Pulse Ox 95 95 95 O2 Delivery Nasal Cannula O2 Flow Rate 2.00 09/26/17 09/26/17 09/26/17 09/26/17 21:00 21:16 21:31 21:45 Pulse 105 91 120 99 Resp 23 25 20 21 B/P (MAP) 134/76 (95) 122/68 (86) 142/97 (112) 107/74 (85) Pulse Ox 96 96 96 91 09/26/17 09/26/17 09/26/17 09/26/17 22:00 22:15 22:30 22:45 Pulse 98 110 95 94 Resp 21 18 18 17 B/P (MAP) 103/60 (74) 103/69 (80) 98/49 (65) 94/51 (65) Pulse Ox 91 91 92 91 09/26/17 09/26/17 09/26/17 09/26/17 23:00 23:12 23:14 23:15 Pulse 101 94 Resp 20 19 13 B/P (MAP) 112/63 (79) 105/46 (65) Pulse Ox 93 91 O2 Delivery Nasal Cannula Room Air O2 Flow Rate 2.00 2.00 09/26/17 09/26/17 09/26/17 09/27/17 23:15 23:30 23:45 00:00 Pulse 97 102 92 93 Resp 19 17 19 16 B/P (MAP) 104/72 (83) 107/52 (70) 111/63 (79) Pulse Ox 92 90 93 09/27/17 09/27/17 09/27/17 09/27/17 00:15 00:18 00:30 00:45 Pulse 102 91 91 91 Resp 30 15 15 17 B/P (MAP) 111/38 (62) 118/63 (81) 98/58 (71) 106/38 (60) Pulse Ox 88 93 92 93 09/27/17 09/27/17 09/27/17 09/27/17 01:00 01:15 01:45 02:00 Pulse 97 78 84 85 Resp 56 30 31 18 B/P (MAP) 108/55 (72) 102/63 (76) 112/63 (79) 129/65 (86) Pulse Ox 92 93 94 94 09/27/17 09/27/17 09/27/17 09/27/17 02:15 02:31 02:46 02:49 Pulse 119 119 119 119 Resp 17 19 18 19 B/P (MAP) 112/70 (84) 135/90 (105) 149/104 (119) 150/84 (106) Pulse Ox 92 97 95 96 09/27/17 09/27/17 09/27/17 12/13/17 03:00 03:12 03:15 03:19 Pulse 101 93 92 97 Resp 18 16 15 19 B/P (MAP) 150/104 (119) 158/77 (104) 141/95 (110) Pulse Ox 97 97 97 93 09/27/17 09/27/17 09/27/17 09/27/17 03:28 03:30 03:45 04:00 Pulse 97 89 101 90 Resp 19 19 17 17 B/P (MAP) 137/93 (108) 120/73 (89) 138/87 (104) Pulse Ox 97 99 96 95 09/27/17 09/27/17 09/27/17 09/27/17 04:03 04:03 04:15 04:30 Pulse 97 92 104 Resp 19 20 16 B/P (MAP) 123/69 (87) 127/80 (96) Pulse Ox 96 96 O2 Delivery Room Air O2 Flow Rate 2.00 09/27/17 09/27/17 09/27/17 09/27/17 04:45 05:00 05:15 05:29 Pulse 98 121 Resp 20 20 16 16 B/P (MAP) 112/75 (87) 138/81 (100) 135/91 (106) 158/80 (106) Pulse Ox 94 95 88 96 09/27/17 05:44 Pulse 97 Resp 19 Intake and Output 09/26/17 09/26/17 09/27/17 15:00 23:00 07:00 Intake Total 881 ml 1100 ml Output Total 700 ml 200 ml Balance 181 ml 900 ml General: No acute distress HEENT: Atraumatic, Mucous membr. moist/pink Neck: Supple, No LAD Lungs: Other (+ exp wheezing) Heart: Normal S1, Normal S2 Abdomen: Normal bowel sounds, Soft Extremities: No cyanosis Neuro: Normal speech Medication Reconciliation Scheduled Alprazolam (Alprazolam), 1 TAB PO PRN, (Reported) Aspirin (Aspir 81), 1 TAB PO DAILY, (Reported) Atorvastatin 40MG (Lipitor 40MG), 1 TAB PO DAILY, (Reported) Carvedilol 6.25MG (Coreg 6.25MG), 3.125 MG PO BID, (Reported) Citalopram Hydrobromide (Citalopram Hbr), 1 TAB PO DAILY, (Reported) Diltiazem Hcl (Diltiazem 24HR Er), 1 CAP PO DAILY, (Reported) Levetiracetam (Levetiracetam), 200 MG PO BID Levothyroxine Sodium (Levothyroxine Sodium), 1 TAB PO DAILY, (Reported) Lisinopril (Lisinopril), 1 TAB PO DAILY, (Reported) Montelukast Sodium (Singulair), 1 TAB PO DAILY, (Reported) Nicotine (Nicotine Patch), 1 EACH TD DAILY Phenytoin Sodium Extended (Dilantin), 100 MG PO TID Scheduled PRN Albuterol Sulfate (Albuterol Sulfate), 2.5 MG IH RTQ4 PRN for WHEEZING Olanzapine (Zyprexa Zydis), 5 MG SL TID PRN for AGITATION Course Blood Pressure Systolic: 149 Blood Pressure Diastolic: 89 Blood Pressure Mean: 106 Assessment/Plan Assessment/Plan Assessment/Plan 86 yo female with COPD, resp failure resolving, seizure d/o, afib, HTN, hypothyroid - will cut back on neb tx with her elevatted HR - optimize B-venessa and Ca channel venessa - on IV steroids - will follow for now Problems: Patient History: Alzheimer's disease 32 MOTHER 33 FATHER LEDY ALVARES MD Sep 27, 2017 07:37
[2017-09-27] MEDS ORDERED: VENTOLIN IH PRN (08:00)
[2017-09-27] MEDS ORDERED: LACTATED RINGERS 1,000 ML IV SCH (08:00)
[2017-09-27] MEDS ORDERED: ULTRAM PO PRN (08:00)
--- NOTE | 2017-09-27 08:10 | NUR ---
GRANDDAUGHTER ROSITA WATERMAN NOTIFIED OF TRANSFER.
[2017-09-27] MEDS ORDERED: CARDIZEM CD PO SCH ×3 (09:00)
[2017-09-27] MEDS ORDERED: ASPIRIN EC PO SCH ×2 (09:00)
[2017-09-27] MEDS ORDERED: DUONEB 0.5 MG-3 MG/3 ML SOLN IH SCH ×2 (09:00)
[2017-09-27] MEDS ORDERED: ZYPREXA ZYDIS SL PRN (09:00)
[2017-09-27] MEDS: KEPPRA PO SCH ×2 (09:00→20:29)
[2017-09-27] MEDS ORDERED: COREG PO SCH ×3 (09:00)
[2017-09-27] MEDS: CELEXA PO SCH (09:22)
[2017-09-27] MEDS: ZESTRIL PO SCH (09:23)
[2017-09-27] MEDS: NICOTINE 14MG PATCH TD SCH (09:23)
[2017-09-27] MEDS: DILANTIN PO SCH ×3 (09:24→20:29)
[2017-09-27] MEDS: LEVAQUIN 100 ML IV SCH (09:24)
[2017-09-27] MEDS: LOVENOX SQ SCH (09:27)
[2017-09-27] MEDS ORDERED: ZOFRAN IV PRN (09:30)
[2017-09-27] MEDS ORDERED: TYLENOL PO PRN (09:30)
--- NOTE | 2017-09-27 09:40 | NUR ---
MEDICATION GIVEN ORDERED. ZYPREXA PRN GIVEN D/T PATIENT YELLING OUT AND BECOMING RESTLESS/AGITATED. SEE EMAR.
--- NOTE | 2017-09-27 11:05 | NUR ---
TRANSFER TO MED/SURG PATIENT TRANSFERRED SELF INTO WITH STANDBY ASSIST. PATIENT REQUEST BSC. PATIENT ASSISTED ONTO BSC. BM NOTED. PATIENT CLEANSED; PERINEAL AND MEYER CARE DONE. PATIENT ASSISTED BACK INTO . NO DISTRESS NOTED. REPORT GIVEN TO Nicola URIOSTEGUI RN.
[2017-09-27] MEDS ORDERED: SOLU-MEDROL IV SCH (14:00)
--- NOTE | 2017-09-27 19:30 | NUR ---
Restless and confused Patient resting in bed with eyes open. HOB elevated. Respirations even and non-labored. No distress noted. Patient is confused. thinking that she is in her house. Reoriented to place and time at this time. Food and drink offered and accepted by the patient. Assisted patient from bed to the restroom and back to bed. Bed locked in low position. SR up x 3. Call light with in reach. Will continue to monitor
--- NOTE | 2017-09-27 19:30 | NUR ---
Report received, assumed care of pt. Pt appears agitated, pleasant, but agitated. Pt currently require one staff to be at bedside at all times for patient safety reasons. Will discuss with Dr. Holliday pt current condition.
--- NOTE | 2017-09-27 19:45 | NUR ---
Restless Patient sitting at the edge of the bed. Respirations even and non-labored. No distress noted. Patient is confused. talking to self. Patient still thinks that she is in her house. Reoriented to place and time at this time. Bed locked in low position. SR up x 3. Call light with in reach. Will continue to monitor
--- NOTE | 2017-09-27 19:45 | NUR ---
New order received from Dr. Holliday x1 dose on Zyprexa 10mg IM.
--- NOTE | 2017-09-27 20:15 | NUR ---
Assessment completed at this time. Pt remains very very restless, agitated. Speaking clearly with staff in non-aggressive manner. Pt noted to have disjointed statements, confusion, pt only able to verbalize who she is, unable to answer any other orientation questions at this time. Pt also noted to have alot of nasal congestion/chest congestion, coughing up small amounts of thick green sputum. States she coughs so much her throat hurts. Eyes noted to have obvious red circles surrounding them. Pt also hasn't slept or rested well through the entire day, unknown if patient was able to sleep any amount last night.
--- NOTE | 2017-09-27 20:29 | NUR ---
HS medication Patient sitting on the edge of the bed Respirations even and non-labored. No distress noted. Patient is confused. thinking that she is in her house. Reoriented to place and time at this time. HS medications administered by Jessica. CHRISTOPHER. Food and drink offered and accepted by the patient. Assisted patient from bed to the restroom and back to bed. Bed locked in low position. SR up x 3. Call light with in reach. Will continue to monitor
[2017-09-27] MEDS ORDERED: ZYPREXA IM ONE (20:30)
--- NOTE | 2017-09-27 20:30 | NUR ---
Zyprexa given IM at this time to R ventro gluteal site. Pt tolerated well. Will continue to monitor status closely.
--- NOTE | 2017-09-27 20:40 | NUR ---
RT at bedside for duoneb treatment Kandice RT at bedside to administer duoneb treatment. Patient sitting at the edge of the bed. Respirations even and non-labored. No distress noted at this time. Bed locked in low position. SR up x 3. Call light with in reach. Will continue to monitor
[2017-09-27] MEDS ORDERED: LIPITOR PO SCH (21:00)
[2017-09-27] MEDS ORDERED: SINGULAIR PO SCH (21:00)
--- NOTE | 2017-09-27 21:30 | NUR ---
Bathroom assistance Assisted patient from bed to the bathroom and back to bed. Respirations even and non-labored. No distress noted at this time. Food and PO fluids offered and accepted by the patient. HOB elevated. Bed locked in low position. SR up x 3. Call light with in reach. Will continue to monitor
--- NOTE | 2017-09-27 22:30 | NUR ---
Pt continues to be restless, legs noted to be "jumping" in bed frequently, pt unable to rest effectively. Dr. Holliday notified of patients status, order received for Benadryl 25mg IVP x1 now. Kajal CHRISTOPHER remains at bedside with patient for patient's safety.
[2017-09-27] MEDS ORDERED: BENADRYL ONE (22:58)
--- NOTE | 2017-09-27 23:05 | NUR ---
Benadryl 25mg given IVP at this time.
[2017-09-27] MEDS ORDERED: BENADRYL IV ONE (23:30)
[2017-09-28 00:13] VITALS: BP 150/95
--- NOTE | 2017-09-28 01:54 | NUR ---
Restless and confused Patient resting in bed on the left side talking to self and "invisible people." Continues with confusion and restlessness. Reoriented to place and time. Bathroom assistance from bed to the bathroom and back to bed provided. Respirations even and non-labored. No distress noted at this time. Food and PO fluids offered and accepted by the patient. HOB elevated. Bed locked in low position. SR up x 3. Call light with in reach. Will continue to monitor
--- NOTE | 2017-09-28 01:58 | NUR ---
Confusion and restlessness continues Patient resting in bed with eyes open, continues with confusion and restlessness. Reoriented to place and time. Bathroom assistance from bed to the bathroom and back to bed provided. Respirations even and non-labored. No distress noted at this time. Food and PO fluids offered and accepted by the patient. HOB elevated. Bed locked in low position. SR up x 3. Call light with in reach. Will continue to monitor
--- NOTE | 2017-09-28 02:00 | NUR ---
SUSTAINABILITY EXECUTIVE DIRECTOR at bedside GARIMA FriasA at bedside talking to the patient. Patient resting in bed with eyes open, continues with confusion and restlessness. Reoriented to place and time. Respirations even and non-labored. No distress noted at this time. HOB elevated. Bed locked in low position. SR up x 3. Call light with in reach. Will continue to monitor
--- NOTE | 2017-09-28 03:35 | NUR ---
IV Patient sitting on the side of the bed. Noted that patient pulled IV from left AC. Patient's gown and bed linens changed with the help of Altagracia HUI. Confusion and restlessness continues. Reoriented to place and time. Bathroom assistance from bed to the bathroom and back to bed provided. PO fluids encouraged and accepted by patient. Respirations even and non-labored. No distress noted at this time. HOB elevated. Bed locked in low position. SR up x 3. Call light with in reach. Bed alarm on in working condition, Will continue to monitor
[2017-09-28 04:32] VITALS: BP 153/96
[2017-09-28] MEDS ORDERED: SYNTHROID PO SCH (06:30)
--- NOTE | 2017-09-28 07:02 | NUR ---
Bedside change of shift report Bed side change of shift report given to on coming shift. Relinquish care of the Patient. Patient resting in bed on the left side with eyes closed. Respirations even and non-labored. HOB elevated. No signs and symptoms of distress noted. Bed locked in low position. SR up x 3. Call light within reach. Bed alarm on in working condition. Will continue to monitor
--- NOTE | 2017-09-28 07:50 | NUR ---
received reportReceived report from the maintenance mechanic 2nd shift nurse.
--- NOTE | 2017-09-28 07:50 | NUR ---
COMPLETED DAILY ASSESSMENT, Pt AWAKE, OFFERED BREAKFAST, DR. MANDUJANO IS AT THE BEDSIDE. DISCUSSED ABOUT DISCHARGE PLAN WITH THE PATIENT.
[2017-09-28] MEDS: LOVENOX SQ SCH ×2 (08:00→08:38)
[2017-09-28] MEDS ORDERED: IPRA3AMP IH (08:13)
[2017-09-28] MEDS ORDERED: [UNRECOGNIZED DRUG - CODE] PO (08:13)
[2017-09-28] MEDS ORDERED: CARV6.25 PO (08:13)
[2017-09-28] MEDS: ZESTRIL PO SCH (08:17)
[2017-09-28] MEDS: CELEXA PO SCH (08:17)
[2017-09-28] MEDS: NICOTINE 14MG PATCH TD SCH ×2 (08:18→08:39)
[2017-09-28] MEDS: KEPPRA PO SCH (08:21)
[2017-09-28] MEDS: DILANTIN PO SCH (08:22)
[2017-09-28] MEDS: LEVAQUIN 100 ML IV SCH (08:30)
--- NOTE | 2017-09-28 09:09 | DSH ---
DATE OF DISCHARGE: 09/28/2017 ADMITTING DIAGNOSES: 1. Chronic obstructive pulmonary disease exacerbation with hypoxia and acute respiratory failure. 2. Chronic atrial fibrillation with hypertension, and dementia with behavioral disturbances. DISCHARGE DIAGNOSES: Chronic obstructive pulmonary disease exacerbation, resolved, with chronic atrial fibrillation, hypertension, and dementia. HOSPITAL COURSE: The patient is an 86-year-old female who came in from [facility] for breathing difficulty. She was found to be having a COPD exacerbation with low O2 sats and significant breathing problems. She was given oxygen and breathing treatments and IV steroids. Her clinical picture greatly improved after 24 hours. She was up walking around and she is breathing a lot better. A chest x-ray was negative for pneumonia. She does have bouts where she gets wild. I do believe this is probably exacerbated by the steroids that were giving her. This morning, she is more awake and alert and she is responding. She is hard of hearing, but her O2 sats are adequate and she is breathing comfortably. She was on every 6 hour breathing treatment that exacerbated her AFib by revving up her heart rate, however I have cut it down to just DuoNeb treatments 3 times a day. I have increased her diltiazem and her Coreg to better rate control her AFib. She is a DNR status and actually is on interim hospice care currently. DISCHARGING DISPOSITION: So at this point, she is stable, she is breathing better, and will be discharged back to [place] under interim hospice. I have changed her diltiazem to 240 a day as well as her Coreg to 6.25 mg twice a day and dropped her albuterol and placed her on DuoNeb treatments 3 times a day. We are sending an incentive spirometer back with her so she can play with, and she is to resume a intermediate diet and activity level. And again, she is being discharged back to interim hospice care at this point. Barbie Holliday MD DR: BREEZY/lien JOB# [id number]
[2017-09-28] MEDS: DUONEB 0.5 MG-3 MG/3 ML SOLN IH SCH (09:24)
--- NOTE | 2017-09-28 09:53 | NUR ---
Report Report called into [facility] at [facility].
[2017-09-28 10:59] VITALS: BP 153/96
== END 2017-09-28 10:58 | disposition home or self-care (01) | DRG 291 ==
LOC: ER 03:04 → EDBD 03:04 → ICU 05:08 → MS 09-27 11:14
PROVIDERS: ADMIT Internal Medicine; ATTEND Pediatrics
PROC: 5A09357 Assistance with Respiratory Ventilation, Less than 24 Consecutive Hours, Continuous Positive Airway Pressure (ICD-10-PCS; principal; 2017-09-26)
DX: I11.0 Hypertensive heart disease with heart failure (principal); J96.21 Acute and chronic respiratory failure with hypoxia; F03.91 Unspecified dementia, unspecified severity, with behavioral disturbance; I48.2 Chronic atrial fibrillation; J44.1 Chronic obstructive pulmonary disease with (acute) exacerbation; G40.909 Epilepsy, unspecified, not intractable, without status epilepticus; E03.9 Hypothyroidism, unspecified; F17.200 Nicotine dependence, unspecified, uncomplicated; F41.9 Anxiety disorder, unspecified; J96.22 Acute and chronic respiratory failure with hypercapnia; I50.33 Acute on chronic diastolic (congestive) heart failure; H91.90 Unspecified hearing loss, unspecified ear; I25.10 Atherosclerotic heart disease of native coronary artery without angina pectoris; Z66 Do not resuscitate; Z51.5 Encounter for palliative care; Z90.49 Acquired absence of other specified parts of digestive tract; Z90.710 Acquired absence of both cervix and uterus; Z82.0 Family history of epilepsy and other diseases of the nervous system; Z79.899 Other long term (current) drug therapy; Z71.6 Tobacco abuse counseling
CPT/HCPCS: 36415; 71010; 80048; 80053; 82550; 82553; 82803; 83880; 84484; 85025; 85379; 85610; 85730; 87040; 87070; 87077; 87186; 93005; 94640; 94660; 96365; 96375; 99291; A4338; J1160; J1200; J1650; J1956; J2060; J2930; J3490; J7030; J7120; J7620